=== PATIENT | male | born 1950 | race Caucasian/White ===

== ENCOUNTER 2020-07-19 13:49 | Outpatient (REF) | payer MEDICARE, SELFPAY | END 2020-07-19 13:50 | disposition home or self-care (01) | LOC: HO.LNP 13:49 | PROVIDERS: Visit Provider Internal Medicine | DX: Z20.828 Contact with and (suspected) exposure to other viral communicable diseases (principal) | CPT/HCPCS: U0003 ==

== ENCOUNTER 2020-07-21 10:15 | Outpatient (REF) | payer MEDICARE, BC, OTHER, SELFPAY ==
[2020-07-21 13:42] LABS: MANUAL DIFF FLAG NO
[2020-07-21 13:49] LABS: Basophils Absolute Auto 0.1 X10*3/uL (0.0-0.2); Basophils Percent Auto 0.5 % (0-2); Eosinophils Absolute Auto 0.8 X10*3/uL (0.0-0.4); Eosinophils Percent Auto 5.3 % (0-4); Hemoglobin 15.2 g/dl (14.0-18.0); Imm Gran Abs Auto 0.08 X10*3/uL (0.00-0.03); Imm Gran Pct Auto 0.5 % (0.0-0.4); Lymphocytes Absolute Auto 3.2 X10*3/uL (1.2-4.9); Lymphocytes Percent Auto 20.9 % (20-40); Mean Corpuscular HGB Conc 32.3 g/dl (31.0-36.0); Mean Corpuscular Hemoglobin 28.6 pg (27.0-33.0); Mean Corpuscular Volume 88.5 fL (80-98); Monocytes Absolute Auto 1.2 X10*3/uL (0.1-1.2); Monocytes Percent Auto 7.6 % (2-11); Neutrophils Absolute Auto 10.1 X10*3/uL (2.0-8.3); Neutrophils Percent Auto 65.2 % (45-73); Platelet Count 320 X10*3/uL (160-400); Red Blood Count 5.31 X10*6/uL (4.60-5.80); Red Cell Distribution Width 13.2 % (11.0-16.0); White Blood Count 15.5 X10*3/uL (4.8-10.8)
[2020-07-21 14:19] LABS: Alanine Aminotransferase 27 U/L (0-40); Albumin Level 4.3 g/dL (3.5-5.0); Alkaline Phosphatase 98 U/L (39-117); Anion Gap 13 (12-20); Aspartate Amino Transferase 18 U/L (5-37); Bilirubin Total 0.8 mg/dL (0.0-1.0); Blood Urea Nitrogen 15 mg/dL (9-16); Calcium 9.5 mg/dL (8.4-10.2); Carbon Dioxide 27 mmol/L (22-29); Chloride 102 mmol/L (96-108); Estimated Glomerular Filt Rate > 60; Glucose Random 243 mg/dL (60-115); Potassium 4.5 mmol/l (3.3-5.1); Sodium 137 mmol/L (135-145); Total Protein 6.6 g/dL (6.5-8.0)
[2020-07-21 14:22] LABS: Estimated Average Glucose 203 mg/dL; Hemoglobin A1c % 8.7 %
[2020-07-21 14:39] LABS: Prostate Specific Antigen Scr 0.74 ng/mL (<0.05-4.0)
== END 2020-07-21 10:16 | disposition home or self-care (01) ==
LOC: HO.10HDL 10:15
PROVIDERS: PCP Internal Medicine; Visit Provider Internal Medicine
DX: E78.00 Pure hypercholesterolemia, unspecified (principal); I25.10 Atherosclerotic heart disease of native coronary artery without angina pectoris; E11.9 Type 2 diabetes mellitus without complications; I10 Essential (primary) hypertension; R35.1 Nocturia
CPT/HCPCS: 36415; 80053; 83036; 84153; 85025

== ENCOUNTER 2020-11-16 11:39 | Outpatient (REF) | payer MEDICARE, BC, OTHER, SELFPAY ==
[2020-11-16 14:15] LABS: Glucose Urine UA >=1000 MG/DL (NEG); Leukocyte Esterase Urine NEG (NEG); Nitrite Urine NEG (NEG); Specific Gravity - Urine >= 1.030 (1.005-1.025); Urine Blood NEG (NEG); Urine Ketones NEG (NEG); Urine Protein NEG (NEG-TRACE)
[2020-11-16 14:16] LABS: Appearance Urine CLEAR; Color Urine YELLOW
[2020-11-16 14:35] LABS: RBC Urine 0 /HPF (0); Squamous Epithelial Cell Urine TRACE /LPF; WBC Urine 0 /HPF (0-4)
[2020-11-16 14:37] LABS: Anion Gap 16 (12-20); Blood Urea Nitrogen 16 mg/dL (9-16); Calcium 9.2 mg/dL (8.4-10.2); Carbon Dioxide 23 mmol/L (22-29); Chloride 100 mmol/L (96-108); Estimated Glomerular Filt Rate > 60; Glucose Random 280 mg/dL (60-115); Potassium 4.2 mmol/L (3.3-5.1); Sodium 135 mmol/L (135-145)
[2020-11-16 15:02] LABS: Prostate Specific Antigen 0.94 ng/mL (<0.05-4.0)
== END 2020-11-16 11:40 | disposition home or self-care (01) ==
LOC: HO.10HDL 11:39
PROVIDERS: Visit Provider Internal Medicine
DX: Z12.5 Encounter for screening for malignant neoplasm of prostate (principal); R35.1 Nocturia; R35.8 Other polyuria
CPT/HCPCS: 36415; 80048; 81001; 84153; 87086

== ENCOUNTER 2021-03-01 09:02 | Outpatient (REF) | payer MEDICARE, BC, OTHER, SELFPAY ==
[2021-03-01 10:27] LABS: MANUAL DIFF FLAG NO
[2021-03-01 10:42] LABS: Basophils Absolute Auto 0.1 X10*3/uL (0.0-0.2); Basophils Percent Auto 0.6 % (0-2); Eosinophils Absolute Auto 1.1 X10*3/uL (0.0-0.4); Eosinophils Percent Auto 7.4 % (0-4); Hemoglobin 14.4 g/dl (14.0-18.0); Imm Gran Abs Auto 0.05 X10*3/uL (0.00-0.03); Imm Gran Pct Auto 0.4 % (0.0-0.4); Lymphocytes Absolute Auto 3.2 X10*3/uL (1.2-4.9); Lymphocytes Percent Auto 22.5 % (20-40); Mean Corpuscular Hemoglobin 28.7 pg (27.0-33.0); Mean Corpuscular Volume 89.8 fL (80-98); Mean Platelet Volume 10.6 fL (9.4-12.4); Monocytes Absolute Auto 0.8 X10*3/uL (0.1-1.2); Monocytes Percent Auto 5.9 % (2-11); Neutrophils Percent Auto 63.2 % (45-73); Platelet Count 315 X10*3/uL (160-400); Red Blood Count 5.01 X10*6/uL (4.60-5.80); Red Cell Distribution Width 12.6 % (11.0-16.0); White Blood Count 14.2 X10*3/uL (4.8-10.8)
[2021-03-01 10:46] LABS: Estimated Average Glucose 235 mg/dL; Hemoglobin A1c % 9.8 %
[2021-03-01 10:59] LABS: Creatinine Urine 104.91 mg/dL; Microalbum/Creatinine Ratio Ur 8.5 ug/mg cr
[2021-03-01 11:13] LABS: Alanine Aminotransferase 24 U/L (0-40); Albumin Level 4.2 g/dL (3.5-5.0); Alkaline Phosphatase 109 U/L (39-117); Anion Gap 14 (12-20); Aspartate Amino Transferase 15 U/L (5-37); Bilirubin Total 0.6 mg/dL (0.0-1.0); Blood Urea Nitrogen 13 mg/dL (9-16); Calcium 10.1 mg/dL (8.4-10.2); Carbon Dioxide 25 mmol/L (22-29); Chloride 104 mmol/L (96-108); Estimated Glomerular Filt Rate > 60; Glucose Random 266 mg/dL (60-115); Potassium 4.9 mmol/L (3.3-5.1); Sodium 138 mmol/L (135-145); Total Protein 6.3 g/dL (6.5-8.0)
== END 2021-03-01 09:03 | disposition home or self-care (01) ==
LOC: HO.10HDL 09:02
PROVIDERS: PCP Internal Medicine; Visit Provider Internal Medicine
DX: Z13.89 Encounter for screening for other disorder (principal)
CPT/HCPCS: 36415; 80053; 82043; 83036; 85025

== ENCOUNTER 2021-06-27 08:52 | Outpatient (REF) | payer MEDICARE, BC, OTHER, SELFPAY ==
[2021-06-27 10:14] LABS: MANUAL DIFF FLAG NO
[2021-06-27 10:27] LABS: Basophils Absolute Auto 0.1 X10*3/uL (0.0-0.2); Basophils Percent Auto 0.5 % (0-2); Eosinophils Absolute Auto 0.8 X10*3/uL (0.0-0.4); Eosinophils Percent Auto 5.6 % (0-4); Hemoglobin 14.7 g/dl (14.0-18.0); Imm Gran Abs Auto 0.06 X10*3/uL (0.00-0.03); Imm Gran Pct Auto 0.4 % (0.0-0.4); Lymphocytes Absolute Auto 2.8 X10*3/uL (1.2-4.9); Lymphocytes Percent Auto 19.5 % (20-40); Mean Corpuscular HGB Conc 32.7 g/dl (31.0-36.0); Mean Corpuscular Hemoglobin 29.5 pg (27.0-33.0); Mean Corpuscular Volume 90.4 fL (80.0-98.0); Mean Platelet Volume 10.6 fL (9.4-12.4); Monocytes Absolute Auto 0.9 X10*3/uL (0.1-1.2); Neutrophils Absolute Auto 9.7 x10*3/uL (2.0-8.3); Platelet Count 286 X10*3/uL (160-400); Red Blood Count 4.98 X10*6/uL (4.60-5.80); White Blood Count 14.3 X10*3/uL (4.8-10.8)
[2021-06-27 10:52] LABS: Alanine Aminotransferase 25 U/L (0-40); Albumin Level 4.2 g/dL (3.5-5.0); Alkaline Phosphatase 120 U/L (39-117); Anion Gap 17 (12-20); Aspartate Amino Transferase 15 U/L (5-37); Bilirubin Total 0.5 mg/dL (0.0-1.0); Blood Urea Nitrogen 16 mg/dL (9-16); Calcium 9.7 mg/dL (8.4-10.2); Carbon Dioxide 24 mmol/L (22-29); Chloride 103 mmol/L (96-108); Cholesterol 105 mg/dL; Estimated Glomerular Filt Rate > 60; Glucose Fasting 296 mg/dL (60-99); HDL Cholesterol 28 mg/dL; LDL Cholesterol Calculated 45 mg/dl; Potassium 4.8 mmol/L (3.3-5.1); Sodium 139 mmol/L (135-145); Total Protein 6.3 g/dL (6.5-8.0); Triglycerides 162 mg/dL
[2021-06-27 10:53] LABS: Estimated Average Glucose 229 mg/dL; Hemoglobin A1c % 9.6 %
[2021-06-27 11:15] LABS: Prostate Specific Antigen Scr 0.73 ng/mL (<0.05-4.0)
== END 2021-06-27 08:53 | disposition home or self-care (01) ==
LOC: HO.10HDL 08:52
PROVIDERS: Visit Provider Internal Medicine
DX: I25.10 Atherosclerotic heart disease of native coronary artery without angina pectoris (principal); J44.9 Chronic obstructive pulmonary disease, unspecified; E11.9 Type 2 diabetes mellitus without complications; E78.00 Pure hypercholesterolemia, unspecified; G35 Multiple sclerosis; N40.0 Benign prostatic hyperplasia without lower urinary tract symptoms; Z12.5 Encounter for screening for malignant neoplasm of prostate
CPT/HCPCS: 36415; 80053; 80061; 83036; 84153; 85025

== ENCOUNTER 2021-07-03 09:18 | Outpatient (REF) | payer MEDICARE, BC, OTHER, SELFPAY ==
[2021-07-03 11:15] LABS: Creatinine Urine 91.66 mg/dL; Microalbum/Creatinine Ratio Ur 6.5 ug/mg cr
== END 2021-07-03 09:19 | disposition home or self-care (01) ==
LOC: HO.10HDL 09:18
PROVIDERS: Visit Provider Internal Medicine
DX: E11.9 Type 2 diabetes mellitus without complications (principal); I25.10 Atherosclerotic heart disease of native coronary artery without angina pectoris; J44.9 Chronic obstructive pulmonary disease, unspecified; E78.00 Pure hypercholesterolemia, unspecified; G35 Multiple sclerosis; N40.0 Benign prostatic hyperplasia without lower urinary tract symptoms
CPT/HCPCS: 82043

== ENCOUNTER 2021-08-01 11:34 | Outpatient (REF) | payer MEDICARE, BC, OTHER, SELFPAY ==
[2021-08-01 12:28] LABS: Influenza A PCR NEGATIVE (Negative); Influenza B PCR NEGATIVE (Negative); Resp Syncy Virus RNA Qual PCR NEGATIVE (Negative); SARS COV2 PCR INHOUSE NEGATIVE (Negative)
== END 2021-08-01 11:35 | disposition home or self-care (01) ==
LOC: HO.LNP 11:34
PROVIDERS: Visit Provider Internal Medicine
DX: Z20.822 Contact with and (suspected) exposure to COVID-19 (principal)
CPT/HCPCS: 0241U

== ENCOUNTER 2021-09-27 09:00 | Outpatient (REF) | payer MEDICARE, OTHER, SELFPAY ==
[2021-09-27 11:02] LABS: MANUAL DIFF FLAG NO
[2021-09-27 11:08] LABS: Basophils Absolute Auto 0.1 X10*3/uL (0.0-0.2); Basophils Percent Auto 0.5 % (0-2); Eosinophils Absolute Auto 0.8 X10*3/uL (0.0-0.4); Eosinophils Percent Auto 5.6 % (0-4); Hematocrit 45.9 % (42.0-52.0); Imm Gran Abs Auto 0.05 X10*3/uL (0.00-0.03); Imm Gran Pct Auto 0.3 % (0.0-0.4); Lymphocytes Percent Auto 20.3 % (20-40); Mean Corpuscular HGB Conc 32.7 g/dl (31.0-36.0); Mean Corpuscular Hemoglobin 28.9 pg (27.0-33.0); Mean Corpuscular Volume 88.4 fL (80.0-98.0); Mean Platelet Volume 10.5 fL (9.4-12.4); Monocytes Percent Auto 6.7 % (2-11); Neutrophils Absolute Auto 9.8 x10*3/uL (2.0-8.3); Neutrophils Percent Auto 66.6 % (45-73); Platelet Count 289 X10*3/uL (160-400); Red Blood Count 5.19 X10*6/uL (4.60-5.80); White Blood Count 14.7 X10*3/uL (4.8-10.8)
[2021-09-27 11:21] LABS: Estimated Average Glucose 200 mg/dL; Hemoglobin A1c % 8.6 %
[2021-09-27 11:33] LABS: Alanine Aminotransferase 26 U/L (0-40); Albumin Level 4.1 g/dL (3.5-5.0); Alkaline Phosphatase 124 U/L (39-117); Anion Gap 12 (12-20); Aspartate Amino Transferase 18 U/L (5-37); Bilirubin Total 0.5 mg/dL (0.0-1.0); Blood Urea Nitrogen 14 mg/dL (9-16); Carbon Dioxide 27 mmol/L (22-29); Chloride 102 mmol/L (96-108); Estimated Glomerular Filt Rate > 60; Glucose Random 265 mg/dL (60-115); Potassium 4.4 mmol/L (3.3-5.1); Sodium 137 mmol/L (135-145); Total Protein 6.4 g/dL (6.5-8.0)
[2021-09-27 14:20] LABS: Creatinine Urine 109.35 mg/dL; Microalbum/Creatinine Ratio Ur 5.4 ug/mg cr
== END 2021-09-27 09:01 | disposition home or self-care (01) ==
LOC: HO.10HDL 09:00
PROVIDERS: Visit Provider Internal Medicine
DX: E11.9 Type 2 diabetes mellitus without complications (principal); I25.10 Atherosclerotic heart disease of native coronary artery without angina pectoris; J44.9 Chronic obstructive pulmonary disease, unspecified
CPT/HCPCS: 36415; 80053; 82043; 83036; 85025

== ENCOUNTER 2021-12-26 10:40 | Outpatient (REF) | payer MEDICARE, OTHER, SELFPAY ==
[2021-12-26 13:45] LABS: Anion Gap 16 (12-20); Blood Urea Nitrogen 14 mg/dL (9-16); Calcium 10.3 mg/dL (8.4-10.2); Carbon Dioxide 26 mmol/L (22-29); Chloride 103 mmol/L (96-108); Estimated Glomerular Filt Rate > 60; Glucose Random 219 mg/dL (60-115); Potassium 4.8 mmol/L (3.3-5.1); Sodium 140 mmol/L (135-145)
[2021-12-26 14:04] LABS: Estimated Average Glucose 174 mg/dL; Hemoglobin A1c % 7.7 %
== END 2021-12-26 10:41 | disposition home or self-care (01) ==
LOC: HO.10HDL 10:40
PROVIDERS: Visit Provider Internal Medicine
DX: E11.9 Type 2 diabetes mellitus without complications (principal); I25.10 Atherosclerotic heart disease of native coronary artery without angina pectoris
CPT/HCPCS: 36415; 80048; 83036

== ENCOUNTER 2022-03-13 10:44 | Outpatient (REF) | payer MEDICARE, OTHER, SELFPAY ==
--- NOTE | ~2022-03-13 | XR_ITS ---
EXAMINATION: XR LUMBOSACRAL SPINE WITH OBLIQUES CLINICAL INFORMATION: Lumbar disc herniation COMPARISON: None TECHNIQUE: AP, both oblique, and lateral views of the lumbar spine. Lateral view of the lumbosacral junction. FINDINGS: I suspect an anomaly at the lumbosacral junction. I suspect 5 lumbar type vertebrae but numbering is slightly uncertain. The lowest disc will be considered L5/S1. There appears to be bilateral L5 spondylolysis without significant spondylolisthesis. There is mild to moderate narrowing of the L4/L5 disc. No significant loss of volume. 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 The pedicles appear intact. No suspicious paraspinal abnormality. There is arterial calcification. XR/XR lumbar spine 4V min IMPRESSION: Bilateral L5 spondylolysis without spondylolisthesis. There is some relatively mild degenerative change with disc narrowing greatest at L4/L5.
== END 2022-03-13 10:45 | disposition home or self-care (01) ==
LOC: HO.XRAY 10:44
PROVIDERS: PCP Internal Medicine; Visit Provider Psychiatry & Neurology Neurology
DX: M51.26 Other intervertebral disc displacement, lumbar region (principal)
CPT/HCPCS: 72110

== ENCOUNTER 2022-07-11 08:31 | Outpatient (REF) | payer MEDICARE, OTHER, SELFPAY ==
[2022-07-11 10:38] LABS: MANUAL DIFF FLAG NO
[2022-07-11 10:54] LABS: Basophils Absolute Auto 0.1 X10*3/uL (0.0-0.2); Basophils Percent Auto 0.5 % (0-2); Eosinophils Absolute Auto 0.9 X10*3/uL (0.0-0.4); Eosinophils Percent Auto 6.3 % (0-4); Hematocrit 45.8 % (42.0-52.0); Hemoglobin 14.7 g/dl (14.0-18.0); Imm Gran Abs Auto 0.06 X10*3/uL (0.00-0.03); Imm Gran Pct Auto 0.4 % (0.0-0.4); Lymphocytes Absolute Auto 2.8 X10*3/uL (1.2-4.9); Lymphocytes Percent Auto 19.3 % (20-40); Mean Corpuscular HGB Conc 32.1 g/dl (31.0-36.0); Mean Corpuscular Hemoglobin 28.9 pg (27.0-33.0); Mean Platelet Volume 10.9 fL (9.4-12.4); Monocytes Absolute Auto 0.9 X10*3/uL (0.1-1.2); Neutrophils Absolute Auto 9.8 x10*3/uL (2.0-8.3); Neutrophils Percent Auto 67.5 % (45-73); Platelet Count 308 X10*3/uL (160-400); Red Blood Count 5.09 X10*6/uL (4.60-5.80); White Blood Count 14.6 X10*3/uL (4.8-10.8)
[2022-07-11 10:55] LABS: Alanine Aminotransferase 29 U/L (0-40)
[2022-07-11 11:44] LABS: Creatinine Urine 115.17 mg/dL; Microalbum/Creatinine Ratio Ur 9.5 ug/mg cr
[2022-07-11 12:19] LABS: Alanine Aminotransferase 29 U/L (0-40); Albumin Level 4.5 g/dL (3.5-5.0); Alkaline Phosphatase 127 U/L (39-117); Anion Gap 13 (12-20); Aspartate Amino Transferase 18 U/L (5-37); Bilirubin Total 0.5 mg/dL (0.0-1.0); Blood Urea Nitrogen 16 mg/dL (9-16); Calcium 10.2 mg/dL (8.4-10.2); Carbon Dioxide 27 mmol/L (22-29); Chloride 106 mmol/L (96-108); Cholesterol 106 mg/dL; Estimated Glomerular Filt Rate > 60; Glucose Fasting 237 mg/dL (60-99); HDL Cholesterol 33 mg/dL; LDL Cholesterol Calculated 43 mg/dl; Potassium 5.1 mmol/L (3.3-5.1); Prostate Specific Antigen 0.85 ng/mL (<0.05-4.0); Sodium 141 mmol/L (135-145); Total Protein 6.7 g/dL (6.5-8.0); Triglycerides 150 mg/dL
[2022-07-11 12:34] LABS: Estimated Average Glucose 174 mg/dL; Hemoglobin A1c % 7.7 %
== END 2022-07-11 08:32 | disposition home or self-care (01) ==
LOC: HO.10HDL 08:31
PROVIDERS: Internal Medicine Interventional Cardiology; Visit Provider Internal Medicine
DX: Z12.5 Encounter for screening for malignant neoplasm of prostate (principal); I25.10 Atherosclerotic heart disease of native coronary artery without angina pectoris; N40.0 Benign prostatic hyperplasia without lower urinary tract symptoms; E11.9 Type 2 diabetes mellitus without complications; J44.9 Chronic obstructive pulmonary disease, unspecified; E78.00 Pure hypercholesterolemia, unspecified
CPT/HCPCS: 36415; 80053; 80061; 82043; 83036; 84153; 84460; 85025

== ENCOUNTER 2023-01-01 14:00 | Outpatient (RCR) | payer MEDICARE, OTHER, SELFPAY ==
--- NOTE | 2022-11-25 15:34 | MHC.PT.EP ---
[facility] [place] Office [place] Office [place] Office [address] Rozina Azar [address] [phone] F: [phone] F: [phone] F: [phone] F: [phone] Physical Therapy Plan of Care Date of Evaluation: Date of Surgery: N/A Diagnosis: Muscle weakness (generalized) Assessment: Pt is a pleasant 72yo M with PMH including MS who presents to PT with generalized weakness. He presents to PT with current impairments in decreased LE strength, decreased core stabilization, decreased balance, and impaired gait. He is limited functionally by prolonged standing, prolonged walking, and stair navigation. He is a good candidate for skilled PT in order to address current impairments to facilitate return to PLOF. He is recommended to be seen 2x/week for 4 weeks and will be reassessed at that time. Frequency and Duration: The patient will be seen 2x/week for 4 weeks Short Term Goals: Pt will be I with HEP to promote self management of symptoms Pt will improve L quad strength to at least 4/5 Mcc Goals: Pt will tolerate static standing > 3 min without rest break to assist with ADLs such as brushing teeth Pt will demonstrate improvements in function as evidenced by statistically significant improvement in LEFI outcome measure Treatment Plan: Modalities to reduce pain, spasms and effusion. Manual therapy to restore motion and function. Therapeutic exercise to improve strength and flexibility. Neuromuscular re-education for posture and balance. Therapeutic activities to return to functional activities of daily living. Electronically signed by: Latonia Guallpa, PT, DPT Please sign and return to therapist. Thank you for your referral.
--- NOTE | 2023-01-02 16:47 | MHC.PT.DC ---
[facility] [place] Office [place] Office [place] Office [address] Rozina Azar [address] [phone] F: [phone] F: [phone] F: [phone] F: [phone] Physical Therapy Discharge Report Diagnosis: Muscle weakness (generalized) Date of Surgery: N/A Date of Evaluation: 11/25/22 Date of Discharge: 01/02/23 Treatments to Date: 7 Cancellations to Date: No Shows to Date: Discharge Status: Improved Function Discharge Summary: Pt was seen for PT from 11/25/22-01/01/23. He has made good progress since SOC and has made progress toward his STGs and LTGs. He improved his score on LEFI outcome measure from 17/80 on initial PT evaluation to 65/80 on 01/01/23. At last attended session he reports he has not been compliant with HEP. He does have HEP for UE, LE and core strengthening. Pt is being D/C from skilled PT at this time. Pt had no questions for physical therapy at time of D/C. Electronically signed by: Latonia Guallpa, PT, DPT Please sign and return to therapist. Thank you for your referral.
== END 2023-01-02 16:47 | disposition home or self-care (01) ==
LOC: HO.PT 14:00
PROVIDERS: PCP Internal Medicine; Visit Provider Internal Medicine
DX: M62.81 Muscle weakness (generalized) (principal)
CPT/HCPCS: 97110; 97112; 97162; 97530

== ENCOUNTER 2023-05-26 08:23 | Outpatient (REF) | payer MEDICARE, OTHER, SELFPAY ==
[2023-05-26 10:51] LABS: MANUAL DIFF FLAG NO
[2023-05-26 10:55] LABS: Basophils Absolute Auto 0.1 X10*3/uL (0.0-0.2); Basophils Percent Auto 0.6 % (0-2); Eosinophils Absolute Auto 0.5 X10*3/uL (0.0-0.4); Eosinophils Percent Auto 3.8 % (0-4); Hematocrit 44.4 % (42.0-52.0); Hemoglobin 14.8 g/dl (14.0-18.0); Imm Gran Abs Auto 0.06 X10*3/uL (0.00-0.03); Imm Gran Pct Auto 0.4 % (0.0-0.4); Lymphocytes Absolute Auto 2.5 X10*3/uL (1.2-4.9); Lymphocytes Percent Auto 17.3 % (20-40); Mean Corpuscular HGB Conc 33.3 g/dl (31.0-36.0); Mean Corpuscular Hemoglobin 29.4 pg (27.0-33.0); Mean Corpuscular Volume 88.1 fL (80.0-98.0); Mean Platelet Volume 10.8 fL (9.4-12.4); Monocytes Absolute Auto 0.9 X10*3/uL (0.1-1.2); Monocytes Percent Auto 5.9 % (2-11); Neutrophils Absolute Auto 10.3 x10*3/uL (2.0-8.3); Platelet Count 272 X10*3/uL (160-400); Red Blood Count 5.04 X10*6/uL (4.60-5.80); Red Cell Distribution Width 12.6 % (11.0-16.0); White Blood Count 14.3 X10*3/uL (4.8-10.8)
[2023-05-26 11:17] LABS: Estimated Average Glucose 186 mg/dL; Hemoglobin A1c % 8.1 % (<6.0)
[2023-05-26 11:44] LABS: Alanine Aminotransferase 25 U/L (0-40); Albumin Level 4.1 g/dL (3.5-5.0); Alkaline Phosphatase 111 U/L (39-117); Anion Gap 14 (12-20); Aspartate Amino Transferase 20 U/L (5-37); Bilirubin Total 0.5 mg/dL (0.0-1.0); Blood Urea Nitrogen 14 mg/dL (9-16); Carbon Dioxide 26 mmol/L (22-29); Chloride 103 mmol/L (96-108); Estimated Glomerular Filt Rate > 60; Glucose Random 334 mg/dL (60-115); Potassium 4.6 mmol/L (3.3-5.1); Sodium 138 mmol/L (135-145); Total Protein 6.6 g/dL (6.5-8.0)
[2023-05-26 13:15] LABS: Appearance Urine Clear; Color Urine Yellow; Glucose Urine UA >=1000 mg/dL (Negative); Leukocyte Esterase Urine Negative (Negative); Nitrite Urine Negative (Negative); PH 5.5 (5.0-9.0); Specific Gravity - Urine >= 1.030 (1.005-1.025); UMIC TRIGGER UA YES; Urine Blood Trace (Negative); Urine Ketones Negative (Negative); Urine Protein Negative (Neg-Trace)
[2023-05-26 13:18] LABS: Bacteria Urine None Seen (None Seen); Hyaline Casts Urine 0-2 /LPF (0-2); Squamous Epithelial Cell Urine 0-2 /HPF (0-2); WBC Urine 0-5 /HPF (0-5)
[2023-05-26 13:32] LABS: Microalbum/Creatinine Ratio Ur 10.8 ug/mg cr (<30)
== END 2023-05-26 08:24 | disposition home or self-care (01) ==
LOC: HO.10HDL 08:23
PROVIDERS: Visit Provider Internal Medicine
DX: I25.10 Atherosclerotic heart disease of native coronary artery without angina pectoris (principal); E11.9 Type 2 diabetes mellitus without complications; J44.9 Chronic obstructive pulmonary disease, unspecified
CPT/HCPCS: 36415; 80053; 81001; 82043; 82570; 83036; 85025

== ENCOUNTER 2023-10-28 08:17 | Outpatient (REF) | payer MEDICARE, OTHER, SELFPAY ==
[2023-10-28 10:53] LABS: MANUAL DIFF FLAG NO
[2023-10-28 10:58] LABS: Basophils Absolute Auto 0.1 X10*3/uL (0.0-0.2); Basophils Percent Auto 0.5 % (0-2); Eosinophils Absolute Auto 0.6 X10*3/uL (0.0-0.4); Eosinophils Percent Auto 4.1 % (0-4); Hemoglobin 15.4 g/dl (14.0-18.0); Imm Gran Abs Auto 0.04 X10*3/uL (0.00-0.03); Imm Gran Pct Auto 0.3 % (0.0-0.4); Lymphocytes Absolute Auto 2.4 X10*3/uL (1.2-4.9); Lymphocytes Percent Auto 15.8 % (20-40); Mean Corpuscular HGB Conc 33.5 g/dl (31.0-36.0); Mean Corpuscular Hemoglobin 29.4 pg (27.0-33.0); Mean Corpuscular Volume 87.8 fL (80.0-98.0); Mean Platelet Volume 10.5 fL (9.4-12.4); Monocytes Absolute Auto 0.9 X10*3/uL (0.1-1.2); Neutrophils Absolute Auto 11.2 x10*3/uL (2.0-8.3); Neutrophils Percent Auto 73.3 % (45-73); Platelet Count 274 X10*3/uL (160-400); Red Blood Count 5.24 X10*6/uL (4.60-5.80); Red Cell Distribution Width 12.5 % (11.0-16.0); White Blood Count 15.3 X10*3/uL (4.8-10.8)
[2023-10-28 11:06] LABS: Estimated Average Glucose 203 mg/dL; Hemoglobin A1c % 8.7 % (<6.0)
[2023-10-28 11:10] LABS: Alanine Aminotransferase 27 U/L (0-40); Alkaline Phosphatase 113 U/L (39-117); Anion Gap 12 (12-20); Aspartate Amino Transferase 17 U/L (5-37); Bilirubin Total 0.8 mg/dL (0.0-1.0); Blood Urea Nitrogen 11 mg/dL (9-16); Calcium 9.5 mg/dL (8.4-10.2); Carbon Dioxide 28 mmol/L (22-29); Chloride 99 mmol/L (96-108); Cholesterol 92 mg/dL (<200); Estimated Glomerular Filt Rate > 60; Glucose Fasting 450 mg/dL (60-99); HDL Cholesterol 29 mg/dL (>40); LDL Cholesterol Calculated 29 mg/dL (<100); Potassium 4.3 mmol/L (3.3-5.1); Sodium 135 mmol/L (135-145); Total Protein 6.6 g/dL (6.5-8.0); Triglycerides 173 mg/dL (<150)
[2023-10-28 11:31] LABS: Prostate Specific Antigen Scr 2.49 ng/mL (<0.05-4.0)
== END 2023-10-28 08:18 | disposition home or self-care (01) ==
LOC: HO.10HDL 08:17
PROVIDERS: Visit Provider Internal Medicine
DX: Z12.5 Encounter for screening for malignant neoplasm of prostate (principal); I25.10 Atherosclerotic heart disease of native coronary artery without angina pectoris; J44.9 Chronic obstructive pulmonary disease, unspecified; E78.00 Pure hypercholesterolemia, unspecified; N40.0 Benign prostatic hyperplasia without lower urinary tract symptoms; E11.9 Type 2 diabetes mellitus without complications
CPT/HCPCS: 36415; 80053; 80061; 83036; 84153; 85025

== ENCOUNTER 2024-07-13 08:28 | Outpatient (REF) | payer MEDICARE, OTHER, SELFPAY ==
[2024-07-13 11:11] LABS: Anion Gap 14 (12-20); Blood Urea Nitrogen 12 mg/dL (9-16); Calcium 9.5 mg/dL (8.4-10.2); Carbon Dioxide 28 mmol/L (22-29); Chloride 100 mmol/L (96-108); Estimated Glomerular Filt Rate > 60; Glucose Random 339 mg/dL (60-115); Potassium 4.4 mmol/L (3.3-5.1); Sodium 138 mmol/L (135-145)
[2024-07-13 11:12] LABS: Estimated Average Glucose 223 mg/dL; Hemoglobin A1C 294.1793 umol/L; Hemoglobin A1c % 9.4 % (<6.0)
--- OUTSIDE RECORDS SUMMARY | 2024-07-14 18:55 | XMS_ITS ---
Author Organization [facility] Address [address] [place] [address] Care Team Providers Care Scouring Train Operator Name Role Phone Karan Sawant MD Primary Care Provider Zafar Garcia [phone] REASON FOR VISIT Patient presents today for a recall colonoscopy Encounters Encounter Location Date Provider Diagnosis [facility] [address] [place] [address] 04/07/2024 Zafar Calderon PLAN OF TREATMENT Next Appt Details Provider Name:Zafar Calderon , 08/11/2024 02:20:00 PM, [address], [address], [place], [address],
--- OUTSIDE RECORDS SUMMARY | 2024-07-14 18:55 | XMS_ITS | Patient Health Record ---
Author Organization [facility] Address [address] [place] [address] Care Team Providers Care Light Adjuster Name Role Phone Karan Sawant MD Primary Care Provider Zafar Garcia Unavailable [phone] REASON FOR REFERRAL No Information MEDICATIONS Medication SIG (Take, Route, Frequency, Duration) Notes Start Date End Date Status buPROPion HCl ER (SR) 150 MG 1 tablet in the morning Orally Once a day Active Avonex 30 MCG as directed Intramus cular ONCE A WEEK Active Atorvastatin Calcium 80 MG 1 tablet Oral ly Once a day for 30 day(s) Active Lisinopril 2.5 MG 1 tablet Orally Once a day for 30 day(s) Active metFORMIN HCl 500 MG 1 tablet with a brando l Orally Once a day for 30 day(s) Active Aspir-81 81 MG 1 tablet Orally Once a day for 30 day(s) Active glipiZIDE ER 2.5 MG 1 tablet with breakf ast Orally Once a day for 30 day(s) Active Metoprolol Succinate ER 25 MG 1 tablet Orally Once a day for 30 day(s) Active IMMUNIZATIONS Vaccine Route Administration Date Status Comme nts Influenza Unknown 10/23/2018 Refused SOCIAL HISTORY Tobacco Use: Social History Observation Description Date Details (start date - stop date) Current Smoker NA - NA Sex Assigned At : Social History Observation Description Sex Assigned At Unknown Tobacco Use/Smoking Question Answer Notes Patient is a current smoker How often do you smoke cigarettes? every day How many cigarettes a day do you smoke? 11-20 How soon after you wake up d o you smoke your first cigarette? 6-30 minutes Are you interested in quitting? Thinking about q uitting Alcohol Screen Question Answer Notes Did you have a drink containing alcohol in the p ast year? No Points 0 Interpretation Negative PROBLEMS Problem Type ICD Code Onset Dates Problem Status W/U Status Risk SNOMED Code Notes Problem Encounter for screening for malignant neoplasm of colon (Z12.11) Active confirmed 433315841 Problem Hx of adenomatous colonic polyps (Z86.010) Active confirmed 908062791 Problem Encounter for long-term (current) aspirin use (Z79.82) Active confirmed [id number] Encounters Encounter Location Date Provider Diagnosis [facility] [address] [place] [address] 04/07/2024 Zafar Calderon PLAN OF TREATMENT Future Test Test Name Order Date COLONOSCOPY 12/01/2012 COLONOSCOPY 10/23/2018 Next Appt Details Provider Name:Zafar Wu Yumiko , 08/11/2024 02:20:00 PM, [address], [address], [place], [address], Insurance Providers Payer Name Payer Address Payer Phone Subscriber Number Group Number Insured Name Patient Relationship to Insured Coverage Start Date Coverage End Date MEDICARE OF [place] [address] [facility] [place] [address] [phone] [id number] SUN HERNANDES Self - patient is the insured [employer] [address] [place] [address] [id number] SUN HERNANDES Self - patient is the insured MEDICAL (GENERAL) HISTORY Medical History History ICD Code Colonoscopy 08-31-2001-tubular adenoma re moved Neg. colonoscopy in 05/2007 except for h yperplastic poyps Multiple sclerosis since age 25 NIDDM Denies CVA,Lung disease,renal disease Hyperlipidemia [place] 2016- stent placed Colonoscopy 01/2013--- 2 small tubular ad enomas removed Surgical History Surgery Date(Month/Year) Vasetomy Tonsillectomy Hernia repair-inguinal
== END 2024-07-13 08:29 | disposition home or self-care (01) ==
LOC: HO.10HDL 08:28
PROVIDERS: Visit Provider Internal Medicine
DX: E11.9 Type 2 diabetes mellitus without complications (principal); J44.9 Chronic obstructive pulmonary disease, unspecified
CPT/HCPCS: 36415; 80048; 83036

== ENCOUNTER 2024-12-02 07:20 | Outpatient (REF) | payer MEDICARE, OTHER, SELFPAY ==
--- OUTSIDE RECORDS SUMMARY | 2024-12-02 07:22 | XMS_ITS | Continuity of Care Document ---
Author Name [facility] Organization [facility] Care Team Providers Care Neurology Epilepsy Physician Name Role Phone [facility] Unavailable Unavailable Medications Combined list of outpatient medications from Department of Defense and Veterans Affairs facilities.Medications provided include 1) outpatient medications from the last 15 months, and 2) patient-reported medications. Medication Details Route Status Patient Instructions Prescription Expires Prescription Number Last Dispense Date Ordering Provider Order Date Order Qty Source ATORVASTATI N CALCIUM (atorvastat in calcium), 80 MG, TABLET, ORAL, [facility], 500 ea. BOTTLE Active [id number] 4 2023 90 Pharmac y Data Transac tion Service Facilit y AVONEX (INTERFERON BETA-1A), 30MCG/.5ML, SYRINGEKIT, INTRAMUSC, BIOGEN-IDEC , 1 ea. KIT Cancele d [id number] : 2023 0 Pharmac y Data Transac tion Service Facilit y AVONEX (INTERFERON BETA-1A), 30MCG/.5ML, SYRINGEKIT, INTRAMUSC, BIOGEN-IDEC , 1 ea. KIT Cancele d [id number] : 2023 0 Pharmac y Data Transac tion Service Facilit y AVONEX (INTERFERON BETA-1A), 30MCG/.5ML, SYRINGEKIT, INTRAMUSC, BIOGEN-IDEC , 1 ea. KIT Cancele d [id number] : 2023 0 Pharmac y Data Transac tion Service Facilit y AVONEX (INTERFERON BETA-1A), 30MCG/.5ML, SYRINGEKIT, INTRAMUSC, BIOGEN-IDEC , 1 ea. KIT Active [id number] 01/05/20 2 4 2023 3 Pharmac y Data Transac tion Service Facilit y AVONEX (INTERFERON BETA-1A), 30MCG/.5ML, SYRINGEKIT, INTRAMUSC, BIOGEN-IDEC , 1 ea. KIT Active [id number] 10/20/19 2 4 2023 3 Pharmac y Data Transac tion Service Facilit y AVONEX (INTERFERON BETA-1A), 30MCG/.5ML, SYRINGEKIT, INTRAMUSC, BIOGEN-IDEC , 1 ea. KIT Cancele d [id number] : 2023 0 Pharmac y Data Transac tion Service Facilit y AVONEX (INTERFERON BETA-1A), 30MCG/.5ML, SYRINGEKIT, INTRAMUSC, BIOGEN-IDEC , 1 ea. KIT Cancele d [id number] : 2023 0 Pharmac y Data Transac tion Service Facilit y BUPROPION HCL SR (bupropion HCl), 150 MG, TAB SR 12H, ORAL, [employer], 100 ea. BOTTLE Active [id number] 4 2023 90 Pharmac y Data Transac tion Service Facilit y GABAPENTIN (GABAPENTIN ), 300 MG, CAPSULE, ORAL, ACTAVIS PHARMA,, 500 ea. BOTTLE Active [id number] 4 2023 90 Pharmac y Data Transac tion Service Facilit y GABAPENTIN (GABAPENTIN ), 300 MG, CAPSULE, ORAL, ACTAVIS PHARMA,, 500 ea. BOTTLE Active [id number] 4 2023 90 Pharmac y Data Transac tion Service Facilit y GABAPENTIN (GABAPENTIN ), 300 MG, CAPSULE, ORAL, ACTAVIS PHARMA,, 500 ea. BOTTLE Active [id number] 4 2023 90 Pharmac y Data Transac tion Service Facilit y GABAPENTIN (gabapentin ), 300 MG, CAPSULE, ORAL, [employer]ARMACE, 270 ea. BOTTLE Active [id number] 4 2023 270 Pharmac y Data Transac tion Service Facilit y GLIPIZIDE ER (glipizide) , 10 MG, TAB ER 24, ORAL, [employer], 100 ea. BOTTLE Active [id number] 4 2023 180 Pharmac y Data Transac tion Service Facilit y GLIPIZIDE ER (glipizide) , 10 MG, TAB ER 24, ORAL, AUROBINDO PHARM, 500 ea. BOTTLE Active [id number] 4 2023 180 Pharmac y Data Transac tion Service Facilit y LISINOPRIL (LISINOPRIL ), 2.5 MG, TABLET, ORAL, [employer], 500 ea. BOTTLE Active [id number] 4 2023 90 Pharmac y Data Transac tion Service Facilit y METFORMIN HCL ER (metformin HCl), 500 MG, TAB ER 24H, ORAL, [employer]ES PHARMA, 500 ea. BOTTLE Active [id number] 4 2023 180 Pharmac y Data Transac tion Service Facilit y METOPROLOL SUCCINATE (metoprolol succinate), 25 MG, TAB ER 24H, ORAL, ACTAVIS/TEV A, 100 ea. BOTTLE Active [id number] 4 2023 90 Pharmac y Data Transac tion Service Facilit y Immunizations Combined list of available immunizations from the Department of Defense and Veterans Affairs facilities. Immunization Series Date Given Administered By Site Reaction Lot Number CVX Code Drug Communication Electronic Technician Status Comments Source COVID-19, mRNA, LNP-S, PF, 30 mcg/0.3 mL dose, linda-sucrose 2021 [email or web address] [place] (PFR) Not Given COVID-19, mRNA, LNP-S, PF, 30 mcg/0.3 mL dose, linda-sucr ose DoD Social History Combined list of available smoking, tobacco, and other social history from Department of Defense and Veterans Affairs facilities. Social History Type Response Date Comment [facility] e This section is an empty social history section. DoD
[2024-12-02 10:03] LABS: Estimated Average Glucose 163 mg/dL; Hemoglobin A1C 190.1447 umol/L; Hemoglobin A1c % 7.3 % (<6.0); Total Hemoglobin (HGBA1C) 3348.6488 umol/L
[2024-12-02 10:21] LABS: Anion Gap 12 (12-20); Blood Urea Nitrogen 14 mg/dL (9-16); Calcium 8.9 mg/dL (8.4-10.2); Carbon Dioxide 26 mmol/L (22-29); Chloride 105 mmol/L (96-108); Estimated Glomerular Filt Rate > 60; Glucose Random 227 mg/dL (60-115); Potassium 3.9 mmol/L (3.3-5.1); Sodium 139 mmol/L (135-145)
== END 2024-12-02 07:21 | disposition home or self-care (01) ==
LOC: HO.10HDL 07:20
PROVIDERS: Visit Provider Internal Medicine
DX: E11.65 Type 2 diabetes mellitus with hyperglycemia (principal); I10 Essential (primary) hypertension; J44.9 Chronic obstructive pulmonary disease, unspecified; G35 Multiple sclerosis; E78.5 Hyperlipidemia, unspecified; R29.898 Other symptoms and signs involving the musculoskeletal system; I71.40 Abdominal aortic aneurysm, without rupture, unspecified; M51.369 Other intervertebral disc degeneration, lumbar region without mention of lumbar back pain or lower extremity pain
CPT/HCPCS: 36415; 80048; 83036; 99202

== ENCOUNTER 2024-12-02 10:55 | Outpatient (AMB) | payer MEDICARE, OTHER, SELFPAY ==
--- NOTE | 2024-12-02 11:17 | MHC.PC.OV ---
Vital Signs 12/02/24 11:24 Height 5 ft 10 in Weight 319 lb 10.724 oz BMI 45.9 BP 106/58 L Pulse 85 Pulse Source Pulse Oximeter Temp 97.6 F Temp Source Temporal Artery Scan Pulse Oximetry (%) 97 Oxygen Delivery Method Room Air Intake Visit Reasons: Routine Rn Neurology Required: No Accompanied by: Spouse Allergies hay fever Allergy (Mild, Uncoded 12/02/24 11:18) sob Fall risk assessment: 2 + Falls in past year Last assessed Fall Risk: 12/02/24 Dental Screening Dental Screen Date: 12/02/24 Did you have a dental visit in the last 12 months?: Yes Did you have a dental problem in the last 6 months where you did not have access to dental care?: No Was dental information given to patient?: Patient has dentist HPI HPI Comments History of Present Illness Details 74 year old male with past medical history of diabetes, AAA, DDD lumbar spine, MS presenting for follow up Diabetes: On glipizide.Last a1c 9.4 recently glucose has been controlled recently. due for a1c CV: Follows with Dr Snowden. aortic dilation. Had fall in October while in [place]. 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 Follows with neurology. Increased urination.Blood pressure sometimes soft. Feels weak sometimes. Needs PT having trouble getting around the home. Colon cancer screening: Colonoscopy was scheduled for tomorrow-rescheduled to March CONSTITUTIONAL: Denies weight loss, fever and chills. HEENT: Denies changes in vision and hearing. RESPIRATORY: Denies SOB and cough. CV: Denies palpitations and CP GI: Denies abdominal pain, nausea, vomiting and diarrhea. : Denies dysuria and urinary frequency. MSK: Denies new myalgia and joint pain. SKIN: Denies rash and pruritus. NEUROLOGICAL: Denies headache PSYCHIATRIC: Denies recent changes in mood. PHYSICAL EXAM: GENERAL: Alert and oriented x 3. NAD EYES: EOMI. Anicteric. HENT: Moist mucous membranes. No scleral icterus. No cervical lymphadenopathy. LUNGS: Clear to auscultation bilaterally. CARDIOVASCULAR: Regular rate and rhythm. No murmur. No JVD. ABDOMEN: Soft, non-tender +bs EXTREMITIES: No edema. Non-tender. SKIN: No rashes or lesions. Warm. NEUROLOGIC: No focal neurological deficits. CN II-XII grossly intact PSYCHIATRIC: Cooperative. Appropriate mood and affect [facility] Medical History (Updated 12/12/24 @ 19:31 by Carmen Quintana MD) Smoker Myocardial infarction (2016) HLD (hyperlipidemia) Diabetes Multiple sclerosis Surgical History (Updated 12/01/24 @ 16:29 by Niru Everett) Hx of inguinal hernia repair Hx of tonsillectomy Hx of vasectomy H/O heart artery stent Hx of colonoscopy (01/25/19) Social History (Updated 12/01/24 @ 09:44 by Sandra Carbone, JORI) Housing: House Patient Tobacco Use Status: Current everyday Tobacco user Tobacco use type: Cigarette Cigarettes Per Day: 20 service: No Current occupational status: retired Cognitive needs: Yes (M.S) Hearing needs: No Vision needs: Yes (Rx glasses) Questionnaire AUDIT C Alcohol Use Questionnaire (AUDIT-C) 1. How often do you have a drink containing alcohol?: Never 3. How often do you have six or more drinks on one occasion?: Never Total Score: 0 Physical exam (Primary Care) Vital Signs: Last Vital Signs Temp 97.6 F 12/02/24 11:24 Pulse 85 12/02/24 11:24 BP 106/58 L 12/02/24 11:24 Pulse Ox 97 12/02/24 11:24 Oxygen Delivery Method Room Air 12/02/24 11:24 BMI result Body Mass Index 45.9 Tobacco/Smoking Status: Tobacco use Status Patient Tobacco Use Status Current everyday Tobacco 12/02/24 11:25 Tobacco use type Cigarette 12/02/24 11:25 Coding Level of Care Code New Pt Level 4 (42658) Complex EM visit Add On G2211 Diagnoses Type 2 diabetes mellitus with hyperglycemia, without long-term current use of insulin E11.65 Diabetes mellitus type: type 2 Diabetes mellitus intermediate insulin use: without intermediate use Diabetes mellitus complication status: with hyperglycemia Multiple sclerosis G35 Hyperlipidemia, unspecified hyperlipidemia type E78.5 Hyperlipidemia type: unspecified Weakness of both lower extremities R29.898 Laterality: bilateral Assessment & Plan Assessment & Plan (1) Diabetes: Code(s): E11.9 - Type 2 diabetes mellitus without complications Category: Medical Qualifiers: Diabetes mellitus type: type 2 Diabetes mellitus intermediate insulin use: without adjunct faculty for medical terminology use Diabetes mellitus complication status: with hyperglycemia Qualified Code(s): E11.65 - Type 2 diabetes mellitus with hyperglycemia (2) Multiple sclerosis: Comment: since age 25 Code(s): G35 - Multiple sclerosis Category: Medical (3) HLD (hyperlipidemia): Code(s): E78.5 - Hyperlipidemia, unspecified Category: Medical Qualifiers: Hyperlipidemia type: unspecified Qualified Code(s): E78.5 - Hyperlipidemia, unspecified (4) Lower extremity weakness: Code(s): R29.898 - Other symptoms and signs involving the musculoskeletal system Category: Medical Qualifiers: Laterality: bilateral Qualified Code(s): R29.898 - Other symptoms and signs involving the musculoskeletal system Plan 74 y/o to establish care Past medical, surgical, social reviewed Diabetes-due for A1C MS-weakness. Needs pt. BPPV-vestibular therapy Labs ordered Orders: Orders PT Evaluation and Treatment 12/02/24 R26.89 - Other abnormalities of gait and mobility, H81.10 - Benign paroxysmal vertigo, unspecified ear PT Evaluation and Treatment 12/02/24 R26.89 - Other abnormalities of gait and mobility, G35 - Multiple sclerosis, R29.898 - Other symptoms and signs involving the musculoskeletal system Lipid Panel 3 Months E11.9 - Type 2 diabetes mellitus without complications, E78.5 - Hyperlipidemia, unspecified, I21.9 - Acute myocardial infarction, unspecified Prostate Specific Antigen 3 Months E11.9 - Type 2 diabetes mellitus without complications, E78.5 - Hyperlipidemia, unspecified, I21.9 - Acute myocardial infarction, unspecified Hemoglobin A1c 3 Months E11.9 - Type 2 diabetes mellitus without complications, E78.5 - Hyperlipidemia, unspecified, I21.9 - Acute myocardial infarction, unspecified Comprehensive Met. Panel 3 Months E11.9 - Type 2 diabetes mellitus without complications, E78.5 - Hyperlipidemia, unspecified, I21.9 - Acute myocardial infarction, unspecified Complete Blood Count Auto Diff 3 Months E11.9 - Type 2 diabetes mellitus without complications, E78.5 - Hyperlipidemia, unspecified, I21.9 - Acute myocardial infarction, unspecified Medications: New FreeStyle Lite Meter (blood-glucose meter) As directed 1 ea 0RF NS E11.9 - Type 2 diabetes mellitus without complications FreeStyle Lancets (lancets) once daily and as needed for hypoglycemia 100 ea 3RF NS E11.9 - Type 2 diabetes mellitus without complications FreeStyle Lite Strips (blood sugar diagnostic) once daily 100 ea 3RF NS E11.9 - Type 2 diabetes mellitus without complications
[2024-12-02 11:24] VITALS: BP 106/58; PULSE 85; TEMP 36.4; O2SAT 97; BMI 45.9
--- OUTSIDE RECORDS SUMMARY | 2024-12-02 12:36 | XMS_ITS | Continuity of Care Document ---
Author Name [facility] Organization [facility] Care Team Providers Care Extrusion Press Supervisor Name Role Phone [facility] Unavailable Unavailable Medications Combined list of outpatient [...] ORAL, 'S LAB, 500 ea. BOTTLE Active [id number] 4 2023 90 Pharmac y Data Transac tion Service Facilit y AVONEX (INTERFERON BETA-1A), 30MCG/.5ML, SYRINGEKIT, INTRAMUSC, BIOGEN-IDEC , 1 ea. KIT Cancele d [id number] : 2023 0 Pharmac y Data Transac tion Service Facilit y AVONEX (INTERFERON BETA-1A), 30MCG/.5ML, SYRINGEKIT, INTRAMUSC, BIOGEN-IDEC , 1 ea. KIT Cancele d [id number] : 2023 0 Pharmac y Data Transac tion Service Facilit y AVONEX (INTERFERON BETA-1A), 30MCG/.5ML, SYRINGEKIT, INTRAMUSC, BIOGEN-IDEC , 1 ea. KIT Cancele d [id number] : 2023 0 Pharmac y Data Transac tion Service Facilit y AVONEX (INTERFERON BETA-1A), 30MCG/.5ML, SYRINGEKIT, INTRAMUSC, BIOGEN-IDEC , 1 ea. KIT Active [id number] 01/05/20 2 4 2023 3 Pharmac y Data Transac tion Service Facilit y AVONEX (INTERFERON BETA-1A), 30MCG/.5ML, SYRINGEKIT, INTRAMUSC, BIOGEN-IDEC , 1 ea. KIT Active [id number] 10/20/19 2 4 2023 3 Pharmac y Data Transac tion Service Facilit y AVONEX (INTERFERON BETA-1A), 30MCG/.5ML, SYRINGEKIT, INTRAMUSC, BIOGEN-IDEC , 1 ea. KIT Cancele d [id number] : 2023 0 Pharmac y Data Transac tion Service Facilit y AVONEX (INTERFERON BETA-1A), 30MCG/.5ML, SYRINGEKIT, INTRAMUSC, BIOGEN-IDEC , 1 ea. KIT Cancele d [id number] : 2023 0 Pharmac y Data Transac tion Service Facilit y BUPROPION HCL SR (bupropion HCl), 150 MG, TAB SR 12H, ORAL, [employer], 100 ea. BOTTLE Active [id number] 4 2023 90 Pharmac y Data Transac tion Service Facilit y GABAPENTIN (GABAPENTIN ), 300 MG, CAPSULE, ORAL, ACTAVIS PHARMA,, 500 ea. BOTTLE Active [id number] 4 2023 90 Pharmac y Data Transac tion Service Facilit y GABAPENTIN (GABAPENTIN ), 300 MG, CAPSULE, ORAL, ACTAVIS PHARMA,, 500 ea. BOTTLE Active [id number] 4 2023 90 Pharmac y Data Transac tion Service Facilit y GABAPENTIN (GABAPENTIN ), 300 MG, CAPSULE, ORAL, ACTAVIS PHARMA,, 500 ea. BOTTLE Active [id number] 4 2023 90 Pharmac y Data Transac tion Service Facilit y GABAPENTIN (gabapentin ), 300 MG, CAPSULE, ORAL, [employer]ARMACE, 270 ea. BOTTLE Active [id number] 4 2023 270 Pharmac y Data Transac tion Service Facilit y GLIPIZIDE ER (glipizide) , 10 MG, TAB ER 24, ORAL, AUROBINDO PHARM, 100 ea. BOTTLE Active [id number] 4 2023 180 Pharmac y Data Transac tion Service Facilit y GLIPIZIDE ER (glipizide) , 10 MG, TAB ER 24, ORAL, AUROBINDO PHARM, 500 ea. BOTTLE Active [id number] 4 2023 180 Pharmac y Data Transac tion Service Facilit y LISINOPRIL (LISINOPRIL ), 2.5 MG, TABLET, ORAL, [employer], 500 ea. BOTTLE Active [id number] 4 2023 90 Pharmac y Data Transac tion Service Facilit y METFORMIN HCL ER (metformin HCl), 500 MG, TAB ER 24H, ORAL, GRANULES PHARMA, 500 ea. BOTTLE Active [id number] 4 2023 180 Pharmac y Data Transac tion Service Facilit y METOPROLOL SUCCINATE (metoprolol succinate), 25 MG, TAB ER 24H, ORAL, ACTAVIS/TEV A, 100 ea. BOTTLE Active [id number] 4 2023 90 Pharmac y Data Transac tion Service Facilit y Immunizations Combined list of available immunizations from the Department of Defense and Veterans Affairs facilities. Immunization Series Date Given Administered By Site Reaction Lot Number CVX Code Drug Material Handler Floorperson Status Comments Source COVID-19, mRNA, LNP-S, PF, 30 mcg/0.3 mL dose, linda-sucrose 2021 ROBERT FDTE[employer] [place] (PFR) Not Given COVID-19, mRNA, LNP-S, PF, 30 mcg/0.3 mL dose, linda-sucr ose DoD Social History Combined list of available smoking, tobacco, and other social history from Department of Defense and Veterans Affairs facilities. Social History Type Response Date Comment [facility] e This section is an empty social history section. DoD
== END 2024-12-02 12:03 | disposition home or self-care (01) ==
LOC: HO.HMCHD 10:55
PROVIDERS: PCP Internal Medicine; Visit Provider Internal Medicine
DX: E11.65 Type 2 diabetes mellitus with hyperglycemia (principal); G35 Multiple sclerosis; E78.5 Hyperlipidemia, unspecified; R29.898 Other symptoms and signs involving the musculoskeletal system

== ENCOUNTER 2025-01-04 10:08 | Outpatient (RCR) | payer MEDICARE, OTHER, SELFPAY ==
[2025-01-04 09:57] VITALS: BP 121/57; PULSE 67
--- NOTE | 2025-01-04 13:58 | MHC.PT.EP ---
[facility] [place] Office [place] Office [place] Office [address] Azar [address] [phone] F: [phone] F: [phone] F: [phone] F: [phone] Physical Therapy Plan of Care Date of Evaluation: 01/04/25 Date of Surgery: Diagnosis: Benign paroxysmal vertigo, unspecified ear Assessment: Pt is a pleasant 74yo M who presents to PT with dizziness. He does report his dizziness has improved a little after blood pressure medication adjustments. Upon assessment, he is negative for BPPV in all canals bilaterally. I assessed his balance and he has decreased balance with increased postural sway. He is currently attending PT for gait and balance. No PT indicated for vertigo at this time. I discussed with pt that I recommend he continue PT to work on his gait and balance. I also discussed with pt that I will leave this PT chart open for 30 days incase he has any recurrence of his symptoms and needs to be reassessed for positional vertigo Frequency and Duration: The patient will be seen Short Term Goals: Assisted Goals: Pt will continue to test negative for BPPV to decrease risk of dizziness and falls Treatment Plan: Modalities to reduce pain, spasms and effusion. Manual therapy to restore motion and function. Therapeutic exercise to improve strength and flexibility. Neuromuscular re-education for posture and balance. Therapeutic activities to return to functional activities of daily living. Electronically signed by: Latonia Guallpa, PT, DPT Please sign and return to therapist. Thank you for your referral.
--- NOTE | 2025-04-20 16:01 | MHC.PT.DC ---
[facility] [place] [facility] [place] Office [place] Office [address] Rozina Azar [address] [phone] F: [phone] F: [phone] F: [phone] F: [phone] Physical Therapy Discharge Report Diagnosis: Benign paroxysmal vertigo, unspecified ear Date of Surgery: Date of Evaluation: 01/04/25 Date of Discharge: 04/20/25 Treatments to Date: 1 Cancellations to Date: No Shows to Date: Discharge Status: Discharge Summary: Pts chart was left open for 30 days in case he had reoccurrence of symptoms. He is being D/C from this PT POC as he did not call to schedule in > 30 days. Please see assessment below from initial PT evaluation on 01/04/25: Pt is a pleasant 74yo M who presents to PT with dizziness. He does report his dizziness has improved a little after blood pressure medication adjustments. Upon assessment, he is negative for BPPV in all canals bilaterally. I assessed his balance and he has decreased balance with increased postural sway. He is currently attending PT for gait and balance. No PT indicated for vertigo at this time. I discussed with pt that I recommend he continue PT to work on his gait and balance. I also discussed with pt that I will leave this PT chart open for 30 days incase he has any recurrence of his symptoms and needs to be reassessed for positional vertigo Electronically signed by: Latonia Guallpa, PT, DPT Please sign and return to therapist. Thank you for your referral.
== END 2025-04-20 16:00 | disposition home or self-care (01) ==
LOC: HO.PT 10:08
PROVIDERS: PCP Internal Medicine; Visit Provider Internal Medicine
DX: R26.89 Other abnormalities of gait and mobility (principal); H81.10 Benign paroxysmal vertigo, unspecified ear
CPT/HCPCS: 97162

== ENCOUNTER 2025-01-31 10:49 | Outpatient (AMB) | payer MEDICARE, OTHER, SELFPAY ==
[2025-01-31 10:05] VITALS: BP 122/70; PULSE 70; TEMP 36.3; O2SAT 97; BMI 20.4
--- NOTE | 2025-01-31 10:05 | A.OFFPC_ITS ---
Vital Signs 01/31/25 10:05 Height 5 ft 10 in Weight 142 lb BMI 20.4 BP 122/70 Blood Pressure Location Rt brachial Position Sitting Pulse 70 Pulse Source Pulse Oximeter Temp 97.3 F Temp Source Axillary Pulse Oximetry (%) 97 Oxygen Delivery Method Room Air Intake Visit Reasons: Freq Urine with burn International Manager Required: No Accompanied by: Self / Same As Patient Allergies hay fever Allergy (Unknown, Uncoded 01/31/25 10:06) sob Tobacco use date assessed: 01/31/25 Fall risk assessment: No Falls in past year Last assessed Fall Risk: 01/31/25 Dental Screening Dental Screen Date: 01/31/25 Did you have a dental visit in the last 12 months?: Yes Did you have a dental problem in the last 6 months where you did not have access to dental care?: No PFSH Medical History Smoker Myocardial infarction (2015) HLD (hyperlipidemia) Diabetes Multiple sclerosis Surgical History Hx of inguinal hernia repair Hx of tonsillectomy Hx of vasectomy H/O heart artery stent Hx of colonoscopy (01/25/19) Family History (Updated 01/31/25 @ 11:14 by Niurka Reilly MA) Mother No problems noted. Father No problems noted. Social History Housing: House Patient Tobacco Use Status: Current everyday Tobacco user Tobacco use type: Cigarette Cigarettes Per Day: 20 e-Cigarette/Vaping Use: Currently Using service: No Current occupational status: retired Cognitive needs: Yes (M.S) Hearing needs: No Vision needs: Yes (Rx glasses) Questionnaire PHQ-9 Over the last 2 weeks, how often have you been bothered by any of the following problems? 1. Little interest or pleasure in doing things: not at all 2. Feeling down, depressed, or hopeless: not at all 3. Trouble falling or staying asleep, or sleeping too much: not at all 4. Feeling tired or having little energy: not at all 5. Poor appetite or overeating: not at all 6. Feeling bad about yourself - or that you are a failure or have let yourself or your family down: not at all 7. Trouble concentrating on things, such as reading the newspaper or watching television: not at all 8. Moving or speaking so slowly that other people could have noticed. Or the opposite - being so fidgety or restless that you have been moving around a lot more than usual: not at all 9. Thoughts that you would be better off or of hurting yourself in some way: not at all Total score: 0 Source: Developed by Drs. Zafar Mccarty, Christy Rodriguez, Otis Mendez and colleagues, with an educational paxton from [employer]. Thrive Questionnaire Date Thrive assessed: 01/31/25 I am a: Patient Within the past 12 months, did the food you bought not last and you didn't have the money to get more?: Never true Within the past 12 months, did you worry whether your food would run out before you got money to buy more?: Never true Do you have trouble paying for medicines?: No Do you have trouble getting transportation to medical appointments?: No Do you have trouble paying your heating and electricity bill?: No Do you have trouble taking care of your child, family member or friend?: No Do you have trouble with day-to-day activities such as bathing, preparing meals, shopping, managing finances, etc.?: No Are you currently unemployed and looking for a job?: No THRIVE Score: 0 AUDIT C Alcohol Use Questionnaire (AUDIT-C) 1. How often do you have a drink containing alcohol?: Never 3. How often do you have six or more drinks on one occasion?: Never Total Score: 0 ARMIN-7 AMB Questionnaire ARMIN-7 Date ARMIN - 7 assessed: 01/31/25 Feeling nervous, anxious, or on edge: 0 = Not at all Not being able to stop or control worryin = Not at all Worrying too much about different things: 0 = Not at all Trouble relaxin = Not at all Being so restless that it is hard to sit still: 0 = Not at all Becoming easily annoyed or irritable: 0 = Not at all Feeling afraid as if something awful might happen: 0 = Not at all Total ARMIN-7 score (0-4 normal; 5-9 mild; 10-14 moderate; 15-21 severe): 0 Source: Developed by Drs. Zafar Mccarty, Christy Rodriguez, Otis Mendez and colleagues, with an educational paxton from [employer]. Physical exam (Primary Care) Vital Signs: Last Vital Signs Temp 97.3 F 01/31/25 10:05 Pulse 70 01/31/25 10:05 BP 122/70 01/31/25 10:05 Pulse Ox 97 01/31/25 10:05 Oxygen Delivery Method Room Air 01/31/25 10:05 BMI result Body Mass Index 20.4 Tobacco/Smoking Status: Tobacco use Status Tobacco use date assessed 01/31/25 01/31/25 10:07 Patient Tobacco Use Status Current everyday Tobacco 01/31/25 10:07 Tobacco use type Cigarette 01/31/25 10:07 e-Cigarette/Vaping Use Currently Using 01/31/25 10:07 PHQ-9: PHQ-9 Score PHQ-9: Total score 0 01/31/25 11:16 Thrive Assessment: Date of Thrive Assessment Date Thrive assessed 01/31/25 01/31/25 10:07 Coding Level of Care Code Est Pt Level 4 (35756) Complex EM visit Add On G2211 Diagnoses Type 2 diabetes mellitus with hyperglycemia, without long-term current use of insulin E11.65 Diabetes mellitus complication status: with hyperglycemia Diabetes mellitus care home insulin use: without watermaster use Diabetes mellitus type: type 2 Assessment & Plan Assessment & Plan (1) Diabetes: Code(s): E11.9 - Type 2 diabetes mellitus without complications Category: Medical Qualifiers: Diabetes mellitus complication status: with hyperglycemia Diabetes mellitus care home insulin use: without watermaster use Diabetes mellitus type: type 2 Qualified Code(s): E11.65 - Type 2 diabetes mellitus with hyperglycemia Plan: History of Present Illness - The patient is a 74-year-old male presenting with symptoms suggestive of a urinary tract infection. - Reports difficulty in stopping urination and tingling sensation when attempting to stop. - No burning sensation during urination, only when trying to stop. - Has not checked blood sugar recently, despite having a machine at home. - History of multiple sclerosis, ambulates independently without a walker. - Served in the [employer] for 33 years, has a son in the [place]. 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 - Family: Has a son in the [employer]. Review of Systems - Genitourinary: Reports difficulty in stopping urination and tingling sensation when attempting to stop. Denies burning sensation during urination. - Endocrine: Has not checked blood sugar recently. Physical Exam General: Cooperative and healthy appearing Nutritional Appearance: Well nourished Orientation/consciousness: Patient oriented x3 Limitations: No limitations Head: Normal to inspection General: Appearance normal, both eyes and all related structures Neck: Normal visual inspection Chest: Normal palpation of entire chest wall Respiratory: N ormal respiratory effort Neurology: Patient oriented x3, has MS but able to ambulate on own without a walker. Results Plan 1. Urinary Tract Infection (Uti) - Start antibiotics for suspected urinary tract infection. - Conduct blood work and urine tests to confirm diagnosis. 2. Multiple Sclerosis (Ms) - No specific management plan discussed during this visit. Discussion Notes I discussed with the patient the likelihood of a urinary tract infection and the need for antibiotics. We also talked about conducting blood work and urine tests to confirm the diagnosis. I advised the patient to monitor his blood sugar levels at home and to follow up with the results. We also briefly discussed his history of multiple sclerosis and his ability to ambulate independently. Patient Instructions - Start taking the prescribed antibiotics as directed. - Go for blood work and urine tests as soon as possible. - Monitor blood sugar levels at home regularly. - Follow up with the doctor once test results are available. Orders: Orders UA and rflx microscopic Today E11.65 - Type 2 diabetes mellitus with hyperglycemia Medications: New sulfamethoxazole-trimethoprim 800-160 mg (Bactrim DS) 1 tab PO BID 14 tabs 0RF 7 days
--- OUTSIDE RECORDS SUMMARY | 2025-01-31 11:36 | XMS_ITS | Continuity of Care Document ---
Author Name [facility] Organization [facility] Care Team Providers Care Cut Off Worker Name Role Phone [facility] Unavailable Unavailable Medications Combined list of outpatient [...] ORAL, 'S LAB, 500 ea. BOTTLE Active [id number] 4 2023 90 Pharmac y Data Transac tion Service Facilit y AVONEX (INTERFERON BETA-1A), 30MCG/.5ML, SYRINGEKIT, INTRAMUSC, BIOGEN-IDEC , 1 ea. KIT Cancele d [id number] : 2023 0 Pharmac y Data Transac tion Service Facilit y BUPROPION HCL SR (bupropion HCl), 150 MG, TAB SR 12H, ORAL, [employer], 100 ea. BOTTLE Active [id number] 4 2023 90 Pharmac y Data Transac tion Service Facilit y GABAPENTIN (GABAPENTIN ), 300 MG, CAPSULE, ORAL, ACTAVIS PHARMA,, 500 ea. BOTTLE Active [id number] 4 2023 90 Pharmac y Data Transac tion Service Facilit y GABAPENTIN (GABAPENTIN ), 300 MG, CAPSULE, ORAL, ACTAVIS PHARMA,, 500 ea. BOTTLE Active [id number] 4 2023 90 Pharmac y Data Transac tion Service Facilit y GABAPENTIN (gabapentin ), 300 MG, CAPSULE, ORAL, XLCARE PHARMACE, 270 ea. BOTTLE Active [id number] 4 2023 270 Pharmac y Data Transac tion Service Facilit y GLIPIZIDE ER (glipizide) , 10 MG, TAB ER 24, ORAL, AUROBINDO PHARM, 100 ea. BOTTLE Active [id number] 4 2023 180 Pharmac y Data Transac tion Service Facilit y LISINOPRIL (LISINOPRIL ), 2.5 MG, TABLET, ORAL, [employer]CO HEALTHCAR, 500 ea. BOTTLE Active [id number] 4 2023 90 Pharmac y Data Transac tion Service Facilit y METFORMIN HCL ER (metformin HCl), 500 MG, TAB ER 24H, ORAL, GRANULES PHARMA, 500 ea. BOTTLE Active [id number] 4 2023 180 Pharmac y Data Transac tion Service Facilit y Immunizations Combined list of available immunizations from the Department of Defense and Veterans Affairs facilities. Immunization Series Date Given Administered By Site Reaction Lot Number CVX Code Drug Import Clerk Status Comments Source COVID-19, mRNA, LNP-S, PF, 30 mcg/0.3 mL dose, linda-sucrose 2021 ROBERT [employer] [place] (PFR) Not Given COVID-19, mRNA, LNP-S, PF, 30 mcg/0.3 mL dose, linda-sucr ose DoD Social History Combined list of available smoking, tobacco, and other social history from Department of Defense and Veterans Affairs facilities. Social History Type Response Date Comment [facility] e This section is an empty social history section. [facility]
== END 2025-01-31 11:43 | disposition home or self-care (01) ==
LOC: HO.HMCHD 10:50
PROVIDERS: Visit Provider Internal Medicine
DX: E11.65 Type 2 diabetes mellitus with hyperglycemia (principal)

== ENCOUNTER 2025-01-31 10:49 | Outpatient (REF) | payer MEDICARE, OTHER, SELFPAY | END 2025-01-31 10:50 | disposition home or self-care (01) | LOC: HO.10HDL 10:49 | PROVIDERS: Visit Provider Internal Medicine | DX: E11.65 Type 2 diabetes mellitus with hyperglycemia (principal); N39.0 Urinary tract infection, site not specified; G35 Multiple sclerosis | CPT/HCPCS: 96127; 99212 ==

== ENCOUNTER 2025-02-01 08:27 | Outpatient (REF) | payer MEDICARE, OTHER, SELFPAY ==
--- OUTSIDE RECORDS SUMMARY | 2024-12-03 03:30 | XMS_ITS ---
Author Organization [facility] Address [address] [place] [address] Care Team Providers Care Language Path Name Role Phone Karan Sawant MD Primary Care Provider Zafar Garcia [phone] REASON FOR VISIT screening, hx polyps Encounters Encounter Location Date Provider Diagnosis [facility] Outpatient [address] [place] [id number] 12/03/2024 Zafar Calderon Plan Of Treatment Next Appt Details Provider Name:Zafar Calderon , 03/14/2025 07:30:00 AM, [address] [place] [address], [id number], Progress Notes * SUN HERNANDES JrDOB: (74 yo M)Acc No.[id number]:12/03/2024 COLON WITH MAC Patient: Shereen LANGFORDSUN Jr Provider: Elodia Calderon MD :1950 A ge:74 Y S ex:Male Date:12/03/2024 Address:[address] [facility] Pcp:Karan Sawant MD Subjective: * Chief Complaints: [...] Generated for Anita sky/Jennifer/Jose R on: 0 02/01/2025 08:32 AM EDT
--- OUTSIDE RECORDS SUMMARY | 2025-01-31 11:36 | XMS_ITS | Continuity of Care Document ---
Author Name [facility] Organization [facility] Care Team Providers Care Gunner Mate Name Role Phone [facility] Unavailable Unavailable Medications Combined list of outpatient [...] ORAL, 'S LAB, 500 ea. BOTTLE Active [id number] 4 2023 90 Pharmac y Data Transac tion Service Facilit y AVONEX (INTERFERON BETA-1A), 30MCG/.5ML, SYRINGEKIT, INTRAMUSC, BIOGEN-IDEC , 1 ea. KIT Cancele d [id number] : 2023 0 Pharmac y Data Transac tion Service Facilit y BUPROPION HCL SR (bupropion HCl), 150 MG, TAB SR 12H, ORAL, [employer], 100 ea. BOTTLE Active [id number] 4 2023 90 Pharmac y Data Transac tion Service Facilit y GABAPENTIN (GABAPENTIN ), 300 MG, CAPSULE, ORAL, ACTAVIS PHARMA,, 500 ea. BOTTLE Active [id number] 4 2023 90 Pharmac y Data Transac tion Service Facilit y GABAPENTIN (GABAPENTIN ), 300 MG, CAPSULE, ORAL, ACTAVIS PHARMA,, 500 ea. BOTTLE Active [id number] 4 2023 90 Pharmac y Data Transac tion Service Facilit y GABAPENTIN (gabapentin ), 300 MG, CAPSULE, ORAL, XLCARE PHARMACE, 270 ea. BOTTLE Active [id number] 4 2023 270 Pharmac y Data Transac tion Service Facilit y GLIPIZIDE ER (glipizide) , 10 MG, TAB ER 24, ORAL, AUROBINDO PHARM, 100 ea. BOTTLE Active [id number] 4 2023 180 Pharmac y Data Transac tion Service Facilit y LISINOPRIL (LISINOPRIL ), 2.5 MG, TABLET, ORAL, [employer]CO HEALTHCAR, 500 ea. BOTTLE Active [id number] 4 2023 90 Pharmac y Data Transac tion Service Facilit y METFORMIN HCL ER (metformin HCl), 500 MG, TAB ER 24H, ORAL, GRANULES PHARMA, 500 ea. BOTTLE Active [id number] 4 2023 180 Pharmac y Data Transac tion Service Facilit y Immunizations Combined list of available immunizations from the Department of Defense and Veterans Affairs facilities. Immunization Series Date Given Administered By Site Reaction Lot Number CVX Code Drug Clean Out Driller Status Comments Source COVID-19, mRNA, LNP-S, PF, 30 mcg/0.3 mL dose, linda-sucrose 2021 ROBERT [employer] [facility] [place] (PFR) Not Given COVID-19, mRNA, LNP-S, PF, 30 mcg/0.3 mL dose, linda-sucr ose DoD Social History Combined list of available smoking, tobacco, and other social history from Department of Defense and Veterans Affairs facilities. Social History Type Response Date Comment [facility] e This section is an empty social history section. [facility]
[2025-02-01 09:46] LABS: MANUAL DIFF FLAG NO
[2025-02-01 09:51] LABS: Hematocrit 42.0 % (42.0-52.0); Hemoglobin 14.0 g/dl (14.0-18.0); Imm Gran Abs Auto 0.05 X10*3/uL (0.00-0.03); Imm Gran Pct Auto 0.4 % (0.0-0.4); Lymphocytes Absolute Auto 2.3 X10*3/uL (1.2-4.9); Mean Corpuscular HGB Conc 33.3 g/dl (31.0-36.0); Mean Corpuscular Hemoglobin 29.9 pg (27.0-33.0); Mean Corpuscular Volume 89.6 fL (80.0-98.0); NRBC Abs Auto 0.000 X10*3/uL (0.0-0.012); NRBC Pct Auto 0.0 /100WBC (0.0-0.2); Platelet Count 262 X10*3/uL (160-400); Red Blood Count 4.69 X10*6/uL (4.60-5.80); White Blood Count 12.5 X10*3/uL (4.8-10.8)
[2025-02-01 09:59] LABS: Hemoglobin A1C 209.2576 umol/L; Total Hemoglobin (HGBA1C) 3608.8907 umol/L
[2025-02-01 10:06] LABS: Alanine Aminotransferase 32 U/L (0-40); Albumin Level 4.4 g/dL (3.5-5.0); Alkaline Phosphatase 81 U/L (39-117); Anion Gap 13 (12-20); Aspartate Amino Transferase 22 U/L (5-37); Blood Urea Nitrogen 19 mg/dL (9-16); Calcium 9.1 mg/dL (8.4-10.2); Carbon Dioxide 24 mmol/L (22-29); Chloride 107 mmol/L (96-108); Cholesterol 83 mg/dL (<200); Estimated Glomerular Filt Rate > 60; HDL Cholesterol 30 mg/dL (>40); Potassium 4.4 mmol/L (3.3-5.1); Sodium 140 mmol/L (135-145); Total Protein 6.5 g/dL (6.5-8.0); Triglycerides 87 mg/dL (<150)
[2025-02-01 10:18] LABS: Appearance Urine Clear; Glucose Urine UA Negative (Negative); PH 6.0 (5.0-9.0); Specific Gravity - Urine 1.020 (1.005-1.025); UMIC TRIGGER UA YES
[2025-02-01 10:24] LABS: Prostate Specific Antigen 0.78 ng/mL (<0.05-4.0)
== END 2025-02-01 08:28 | disposition home or self-care (01) ==
LOC: HO.10HDL 08:27
PROVIDERS: Visit Provider Internal Medicine
DX: E11.9 Type 2 diabetes mellitus without complications (principal); E78.5 Hyperlipidemia, unspecified; I21.9 Acute myocardial infarction, unspecified; Z12.5 Encounter for screening for malignant neoplasm of prostate
CPT/HCPCS: 36415; 80053; 80061; 81001; 81003; 83036; 84153; 85025

== ENCOUNTER → 2025-02-03 10:15 | Outpatient (BNV) | payer MEDICARE, OTHER, SELFPAY | PROVIDERS: Visit Provider Radiology Diagnostic Radiology | DX: G35 Multiple sclerosis (principal) | CPT/HCPCS: 70553 ==

== ENCOUNTER 2025-02-03 11:06 | Outpatient (REF) | payer MEDICARE, OTHER, SELFPAY ==
--- OUTSIDE RECORDS SUMMARY | 2024-12-03 03:30 | XMS_ITS ---
Author Organization [facility] Address [address] [place] [address] Care Team Providers Care Chandelier Maker Name Role Phone Karan Sawant MD Primary Care Provider Zafar Garcia [phone] REASON FOR VISIT screening, hx polyps Encounters Encounter Location Date Provider Diagnosis [facility] [place] [address] [place] [phone] 12/03/2024 Zafar Calderon Plan Of Treatment Next Appt Details Provider Name:Zafar Calderon , 03/14/2025 07:30:00 AM, [address] [place] [address], [id number], Progress Notes * SUN HERNANDES JrDOB: (74 yo M)Acc No.[id number]:12/03/2024 COLON WITH MAC Patient: Shereen LANGFORDSUN Jr Provider: Elodia Calderon MD :1950 A ge:74 Y S ex:Male Date:12/03/2024 Address[address] [facility] Pcp:Karan Sawant MD Subjective: * Chief Complaints: * 1 . [...] Calderon MD Date: 0 12/03/2024 Generated for Anita sky/Jennifer/Jose R on: 0 02/03/2025 11:59 AM EDT
--- NOTE | ~2025-02-03 | MR_ITS ---
EXAMINATION: MR BRAIN WITHOUT AND WITH CONTRAST CLINICAL INFORMATION: Multiple sclerosis.. COMPARISON: Unable able atelectasis 2. TECHNIQUE: Multiplanar, multisequence MRI of the brain was obtained before and after the intravenous administration of 7 mL of Gadavist. FINDINGS: There is no restricted diffusion seen to suspect any acute ischemia or acute demyelinating plaques. There is extensive T2 FLAIR signal changes in periventricular and subcortical white matter of both cerebral hemispheres without mass effect. The subcortical lesions are more rounded especially in the right frontal lobe. There is no enhancement seen on the postcontrast exam no edema or mass effect seen. Normal flow-void signal seen in major intracranial vessels. Postcontrast is there no abnormal intraparenchymal or extra-axial dural enhancement. The lateral ventricles are symmetrical in size and configuration but moderately enlarged. There is mild prominence of cortical sulci as well. There is no abnormal signal enhancement seen in the posterior fossa. The paranasal sinuses are well-aerated and clear. There is mild mucoperiosteal thickening bilateral mastoid sinuses.. Dental artifacts are noted in the oral cavity from abnormality or dimension. MR/MR head/brain wo/w con IMPRESSION: No acute intracranial process seen. Extensive white matter changes involving the peripheral white white matter suggestive of chronic demyelination/or mass. No acute enhancement seen to suspect any acute plaques. There are no previous MRI of the liver for comparison. Electronically signed by: Isaac Owens MD 02/03/2025 01:23 PM EDT
--- OUTSIDE RECORDS SUMMARY | 2025-02-03 11:58 | XMS_ITS | Continuity of Care Document ---
Author Name [facility] Organization [facility] Care Team Providers Care Silk Screener Name Role Phone [facility] Unavailable Unavailable Medications Combined list of outpatient [...] ORAL, 'S LAB, 500 ea. BOTTLE Active [id number] 4 2023 90 Pharmac y Data Transac tion Service Facilit y AVONEX (INTERFERON BETA-1A), 30MCG/.5ML, SYRINGEKIT, INTRAMUSC, BIOGEN-IDEC , 1 ea. KIT Cancele d [id number] : 2023 0 Pharmac y Data Transac tion Service Facilit y BUPROPION HCL SR (bupropion HCl), 150 MG, TAB SR 12H, ORAL, [employer], 100 ea. BOTTLE Active [id number] 4 2023 90 Pharmac y Data Transac tion Service Facilit y GABAPENTIN (GABAPENTIN ), 300 MG, CAPSULE, ORAL, ACTAVIS PHARMA,, 500 ea. BOTTLE Active [id number] 4 2023 90 Pharmac y Data Transac tion Service Facilit y GABAPENTIN (GABAPENTIN ), 300 MG, CAPSULE, ORAL, ACTAVIS PHARMA,, 500 ea. BOTTLE Active [id number] 2023 90 Pharmac y Data Transac tion Service Facilit y GABAPENTIN (gabapentin ), 300 MG, CAPSULE, ORAL, XLCARE PHARMACE, 270 ea. BOTTLE Active [id number] 4 2023 270 Pharmac y Data Transac tion Service Facilit y GLIPIZIDE ER (glipizide) , 10 MG, TAB ER 24, ORAL, AUROBINDO PHARM, 100 ea. BOTTLE Active [id number] 2023 180 Pharmac y Data Transac tion Service Facilit y LISINOPRIL (LISINOPRIL ), 2.5 MG, TABLET, ORAL, [employer] HE[employer], 500 ea. BOTTLE Active [id number] 4 2023 90 Pharmac y Data Transac tion Service Facilit y METFORMIN HCL ER (metformin HCl), 500 MG, TAB ER 24H, ORAL, GRANULES PHARMA, 500 ea. BOTTLE Active [id number] 2023 180 Pharmac y Data Transac tion Service Facilit y Immunizations Combined list of available immunizations from the Department of Defense and Veterans Affairs facilities. Immunization Series Date Given Administered By Site Reaction Lot Number CVX Code Drug Line Worker Status Comments Source COVID-19, mRNA, LNP-S, PF, 30 mcg/0.3 mL dose, linda-sucrose 2021 ROBERT [employer] [place] (PFR) Not Given COVID-19, mRNA, LNP-S, PF, 30 mcg/0.3 mL dose, linda-sucr ose DoD Social History Combined list of available smoking, tobacco, and other social history from Department of Defense and Veterans Affairs facilities. Social History Type Response Date Comment [facility] e This section is an empty social history section. [facility]
== END 2025-02-03 11:07 | disposition home or self-care (01) ==
LOC: HO.MRI 11:06
PROVIDERS: Visit Provider Registered Nurse
DX: G35 Multiple sclerosis (principal)
CPT/HCPCS: 70553; A9585

== ENCOUNTER 2025-03-11 10:06 | Outpatient (AMB) | payer MEDICARE, OTHER, SELFPAY ==
--- NOTE | 2025-03-11 10:08 | MHC.OFFVIS ---
Intake Visit Reasons: paper work Accompanied by: Spouse Allergies hay fever Allergy (Unknown, Uncoded 03/11/25 10:24) sob Medication List - Last Reconciled 03/11/25 by Genet Wang CNP aspirin 81 mg PO DAILY atorvastatin 80 mg PO DAILY bupropion HCl SR 150 mg PO BID FreeStyle Lancets (lancets) once daily and as needed for hypoglycemia NS FreeStyle Lite Meter (blood-glucose meter) As directed NS FreeStyle Lite Strips (blood sugar diagnostic) once daily NS gabapentin 300 mg PO TID glipizide ER 5 mg PO DAILY interferon beta-1a (Avonex) 30 mcg IM QWEEK interferon beta-1a (Avonex) 30 mcg IM QWEEK lisinopril 2.5 mg PO DAILY metformin ER 1,000 mg PO BID metoprolol succinate ER 25 mg PO DAILY sitagliptin phosphate (Januvia) 100 mg PO DAILY sulfamethoxazole-trimethoprim 800-160 mg (Bactrim DS) 1 tab PO BID 7 days tamsulosin 0.4 mg PO BEDTIME HPI Comments Details: MS stable on weekly Avonex injection. Balance was not so good. Has had few more falls without significant injury over the last 2 months. He does not use cane or walker. He uses scooter for longer distances. He had prefabricated AFO before, but it did not help and seemed to get in the way more. He started PT in 12/2024 and it was determined he would benefit from custom AFO. PT was on hold for now until he had new AFO. He was planning to go back to [place] with his from 05/2025-12/2025. He saw provider while in [place] earlier this year that increased dose of bupropion. He fell and fractured R ribs earlier this year in [place] when trying to untangle dogs. Ongoing LBP, stable with gabapentin. It started after a fall on 02/18/21, MRI shows [address] Aponte who recommended pain meds and PT at the time. Some trouble sleeping and fatigue. He has relapsing remitting MS on the weekly Avonex injection. Decided not to switch to [employer]. [facility] Medical History (Updated 03/11/25 @ 10:40 by Genet Wang CNP) CAD (coronary artery disease) Smoker Myocardial infarction (2016) HLD (hyperlipidemia) Diabetes Multiple sclerosis Surgical History Hx of inguinal hernia repair Hx of tonsillectomy Hx of vasectomy H/O heart artery stent Hx of colonoscopy (01/25/19) Family History (Updated 01/31/25 @ 11:14 by Niurka Reilly MA) Mother No problems noted. Father No problems noted. Social History Housing: House Patient Tobacco Use Status: Current everyday Tobacco user Tobacco use type: Cigarette Cigarettes Per Day: 20 e-Cigarette/Vaping Use: Currently Using service: No Current occupational status: retired Cognitive needs: Yes (M.S) Hearing needs: No Vision needs: Yes (Rx glasses) Review of Systems Const Denies chills, Denies daytime sleepiness, Denies difficulty sleeping, Reports fatigue, Denies fever(s), Reports frequent falls, Denies headache(s), Denies increased appetite, Denies poor appetite, Denies snoring, Denies weakness, Denies weight gain and Denies weight loss Eyes Denies loss of vision ENT Denies vertigo, Denies dizziness, Denies headache(s) and Denies neck pain Card Denies chest pain at rest, Denies chest pain with activity, Denies syncope, Denies leg edema, Denies palpitations, Denies dyspnea and Denies dyspnea on exertion Resp Denies cough, Denies dyspnea, Denies dyspnea on exertion and Denies snoring GI Denies abdominal pain, Denies constipation, Denies heartburn, Denies diarrhea and Denies nausea Denies urinary frequency, Denies urinary incontinence and Denies urinary urgency Musc Reports abnormal gait, Reports back pain, Denies myalgias, Denies arthralgias, Denies neck pain, Denies numbness and Denies tingling Neuro Reports abnormal gait, Denies vertigo, Denies dizziness, Denies syncope, Reports frequent falls, Denies headache(s), Denies lack of coordination, Denies loss of vision, Denies memory loss, Denies numbness, Denies Other visual disturbances, Denies restless legs, Denies seizure-like activity, Denies tingling, Denies paresthesias, Denies tremor(s) and Denies weakness Psych Denies anxiety, Denies depression, Denies auditory hallucinations, Denies memory loss and Denies visual hallucinations Endo Reports fatigue and Denies palpitations Physical Exam Const Other: Unable to do due to televisit. Telehealth Telehealth Telehealth Platform: Telephone Location of provider rendering services: practice address Location of patient: address on file Patient Identification confirmed using: Name, : Yes Telehealth method: voice only Patient verbally consented to treatment: Yes Patient verbally consented to billing insurance company: Yes Patient informed of any privacy concerns related to visit: Yes Results Reviewed Results Reviewed: Laboratory Tests 02/01/25 08:30 WBC 12.5 H RBC 4.69 Hgb 14.0 Hct 42.0 MCV 89.6 MCH 29.9 MCHC 33.3 RDW 13.3 Plt Count 262 MPV 10.3 Immature Gran % (Auto) 0.4 Neut % (Auto) 70.4 Lymph % (Auto) 18.2 L [place] % (Auto) 5.6 Eos % (Auto) 5.0 H Baso % (Auto) 0.4 Lymph # (Auto) 2.3 [place] # (Auto) 0.7 Eos # (Auto) 0.6 H Baso # (Auto) 0.1 Abs Immat Gran (auto) 0.05 H Absolute Neuts (auto) 8.8 H Absolute Nucleated RBC 0.000 Nucleated RBC % (auto) 0.0 Sodium 140 Potassium 4.4 Chloride 107 Carbon Dioxide 24 Anion Gap 13 BUN 19 H Creatinine 0.94 Estimated GFR > 60 Random Glucose 234 H Estimat Average Glucose 169 Hemoglobin A1c % 7.5 H Calcium 9.1 Total Bilirubin 0.5 AST 22 ALT 32 Alkaline Phosphatase 81 Total Protein 6.5 Albumin 4.4 Triglycerides 87 Cholesterol 83 LDL Cholesterol, Calc 36 HDL Cholesterol 30 L [place] [id number] Magnetic Resonance Report Signed Patient: Israel Grant MR#: [id number] : 1950 Acct:[id number] Age/Sex: 74 / M ADM Date: 02/03/25 Loc: HO.MRI Attending Dr: Genet Wang CNP Ordering Physician: Genet Wang CNP Date of Service: 02/03/25 Procedure(s): MR head/brain wo/w con Accession Number(s): [id number] cc: Physician,Unknown ; Genet Wang ORACLE PROGRAMMER ANALYST~ EXAMINATION: MR BRAIN WITHOUT AND WITH CONTRAST CLINICAL INFORMATION: Multiple sclerosis.. COMPARISON: Unable able atelectasis 2. TECHNIQUE: Multiplanar, multisequence MRI of the brain was obtained before and after the intravenous administration of 7 mL of Gadavist. FINDINGS: There is no restricted diffusion seen to suspect any acute ischemia or acute demyelinating plaques. There is extensive T2 FLAIR signal changes in periventricular and subcortical white matter of both cerebral hemispheres without mass effect. The subcortical lesions are more rounded especially in the right frontal lobe. There is no enhancement seen on the postcontrast exam no edema or mass effect seen. Normal flow-void signal seen in major intracranial vessels. Postcontrast is there no abnormal intraparenchymal or extra-axial dural enhancement. The lateral ventricles are symmetrical in size and configuration but moderately enlarged. There is mild prominence of cortical sulci as well. There is no abnormal signal enhancement seen in the posterior fossa. The paranasal sinuses are well-aerated and clear. There is mild mucoperiosteal thickening bilateral mastoid sinuses.. Dental artifacts are noted in the oral cavity from abnormality or dimension. MR/MR head/brain wo/w con IMPRESSION: No acute intracranial process seen. Extensive white matter changes involving the peripheral white white matter suggestive of chronic demyelination/or mass. No acute enhancement seen to suspect any acute plaques. There are no previous MRI of the liver for comparison. Electronically signed by: Isaac Owens MD 02/03/2025 01:23 PM EDT --- 03/2022 LS spine XR: Bilateral L5 spondylolysis without spondylolisthesis. There is somerelatively mild degenerative change with disc narrowing greatest atL4/L5. Assessment & Plan Assessment & Plan (1) Multiple sclerosis: Comment: since age 25 Code(s): G35 - Multiple sclerosis Category: Medical Plan: MRI results reviewed with patient and his , no active lesions. Continue Avonex Prefilled Syringe Kit 30mcg/0.5mL 0.5mL IM weekly. Will complete orders/forms and letter of medical necessity from [employer] for custom AFO. He will restart PT once AFO is received. (2) Lumbar radiculopathy: Code(s): M54.16 - Radiculopathy, lumbar region Category: Medical Plan: . Coding Level of Care Code Tele Est Pt Level 4 (03436) Diagnoses Multiple sclerosis G35 Lumbar radiculopathy M54.16
--- OUTSIDE RECORDS SUMMARY | 2025-03-11 10:10 | XMS_ITS | Patient Health Record ---
Author Organization [facility] Address [address] [place] [address] Care Team Providers Care Size Mixer Name Role Phone Jese (RETIRED) Karan CARTER Primary Care Provide r Unavailable Zafar Calderon Unavailable [phone] Allergies No Known Allergies Reason For Referral [...] Problem Status W/U Status Risk Notes Problem [id number] Encounter for screening for malignant neoplasm of colon (Z12.11) Active confirmed Problem 287004963 Hx of adenomatous colonic polyps (Z86.010) Active confirmed Problem 716174982045548 Encounter for long-term (current) aspirin use (Z79.82) Active confirmed Problem Personal history of adenomatous and serrated colon polyps (Z86.0101) Active confirmed Vital Signs Temperature 97.1 degrees Fahrenheit 08/11/2024 Blood pressure diastolic 00 mm Hg 08/11/2024 Height 69 in 08/11/2024 Blood pressure systolic 000 mm Hg 08/11/2024 Weight 165 lbs 08/11/2024 BMI 24.36 kg/m2 08/11/2024 Encounters Encounter Location Date Provider Diagnosis [facility] [address] [place] [id number] 08/11/2024 Zafar Calderon Hx of adenomatous colonic polyps Z86.010 ; Encounter for long-term (current) aspirin use Z79.82 and Encounter for screening for malignant neoplasm of colon Z12.11 [facility] [address] [place] [phone] 12/01/2024 Zafar Calderon Assessments Encounter Date Diagnosis (ICD Code) Assessment [...] COLONOSCOPY 08/11/2024 Next Appt Details Provider Name:Zafar Calderon , 03/14/2025 07:30:00 AM, [facility] , [place], [place], [id number], Insurance Providers Payer Name Payer Address Payer Phone Subscriber Number Group Number Insured Name Patient Relationship to Insured Coverage Start Date Coverage End Date MEDICARE OF [place] [address] [place] [address] [id number] SUN HERNANDES Self - patient is the insured [id number] [address] [place] [address] [id number] SUN HERNANDES Self - patient is the insured Medical (General) History Medical History History ICD Code Colonoscopy 08-31-2001-tubular adenoma re moved Neg. colonoscopy in 05/2007 except for h yperplastic poyps Multiple sclerosis since age 25 NIDDM Denies CVA,Lung disease,renal disease Hyperlipidemia [place] 2016- stent placed Colonoscopy 01/2013--- 2 small tubular ad enomas removed Colonoscopy 01/2019 1 tubular adenoma rem anila Surgical History Surgery Date(Month/Year) Vasetomy Tonsillectomy Hernia repair-inguinal
== END 2025-03-11 11:25 | disposition home or self-care (01) ==
LOC: HO.HSM 10:06
PROVIDERS: PCP Internal Medicine; Visit Provider Registered Nurse
DX: G35 Multiple sclerosis (principal); M54.16 Radiculopathy, lumbar region
CPT/HCPCS: 99214

== ENCOUNTER 2025-03-14 06:18 | Day surgery (SDC) | payer MEDICARE, OTHER, SELFPAY ==
--- OUTSIDE RECORDS SUMMARY | 2024-11-11 12:17 | XMS_ITS ---
Author Organization [facility] Address [address] [place] [address] Care Team Providers Care Profiler Hand Name Role Phone Karan Sawant MD Primary Care Provider Zafar Garcia Unavailable [phone] Allergies No Known Allergies REASON FOR VISIT Patient presents today for a recall colonoscopy Medications Medication SIG (Take, Route, Frequency, Duration) Notes Start Date End Date Status buPROPion HCl ER (SR) 150 MG 1 tablet in the morning Orally Once a day Active Tamsulosin HCl 0.4 MG TAKE 1 CAPSULE BY MOUTH AT BEDTIME Oral for 90 Active Avonex 30 MCG as directed Intramus [...] day for 30 day(s) Active metFORMIN HCl ER 500 MG Oral for 90 Active Avonex Prefilled 30 MCG/0.5ML Intramuscular for 84 Active Gabapentin 300 MG Oral for 90 Active Aspir-81 81 MG 1 tablet Orally Once a day for 30 day(s) Active Metoprolol Succinate ER 25 MG 1 tablet Orally Once a day for 30 day(s) Active Immunizations Vaccine Route Administration Date Status Comme nts Influenza Unknown 08/11/2024 Refused Social History Tobacco Use: Social History Observation Description Date Details (start date - stop date) Current Smoker NA - NA Tobacco Use/Smoking Question Answer Notes Patient is [...] ast year? No Points 0 Interpretation Negative Section Notes: Smoker 1 ppd; no alcohol Problems Problem Type SNOMED Code ICD Code Onset Dates Problem Status W/U Status Risk Notes Problem Personal history of adenomatous and serrated colon polyps (Z86.0101) Active confirmed Vital Signs Temperature 97.1 degrees Fahrenheit 08/11/19 25 Blood pressure systolic 000 mm Hg 08/11/19 25 Blood pressure diastolic 00 mm Hg 025 Height 69 in 08/11/2024 Weight 165 lbs 08/11/2024 BMI 24.36 kg/m2 08/11/2024 Encounters Encounter Location Date Provider Diagnosis [facility] [address] [place] [address] 08/11/2024 Zafar Calderon Hx of adenomatous colonic polyps Z86.010 ; Encounter for long-term (current) aspirin use Z79.82 and Encounter for screening for malignant neoplasm of colon Z12.11 Assessments Encounter Date Diagnosis (ICD Code) Assessment Notes Treatment Notes Treatment Clinical Notes Section Notes 08/11/2024 Hx of adenomatous colonic polyps (ICD-10 - Z86.010) Do not take the Metformin or Glipizide the night before or on the morning of the colonoscopy Do not take the aspirin on the morning of the colonosocpy Overall, Prince is not having any new nor worrisome GI complaints. Given his history of tubular adenomas and his last colonoscopy being over 5 years ago, I did recommend a followup colonoscopy for further screening purposes. We did review the rationale for that in regard to colon cancer prevention. Full consent is obtained for this, including risks of bleeding and perforation. The procedure will be done with monitored anesthesia care. He was given the below instructions regarding adjustment of his medications for the procedure. Prince was comfortable with this plan. Thank you again for allowing me to participate in Prince's care. I shall continue to keep you advised of his progress. 08/11/2024 Encounter for long-term (current) aspirin use (ICD-10 - Z79.82) Overall, Prince is not having any new nor worrisome GI complaints. Given his history of tubular adenomas and his last colonoscopy being over 5 years ago, I did recommend a followup colonoscopy for further screening purposes. We did review the rationale for that in regard to colon cancer prevention. Full consent is obtained for this, including risks of bleeding and perforation. The procedure will be done with monitored anesthesia care. He was given the below instructions regarding adjustment of his medications for the procedure. Prince was comfortable with this plan. Thank you again for allowing me to participate in Prince's care. I shall continue to keep you advised of his progress. 08/11/2024 Encounter for screening for malignant neoplasm of colon (ICD-10 - Z12.11) Overall, Prince is not having any new nor worrisome GI complaints. Given his history of tubular adenomas and his last colonoscopy being over 5 years ago, I did recommend a followup colonoscopy for further screening purposes. We did review the rationale for that in regard to colon cancer prevention. Full consent is obtained for this, including risks of bleeding and perforation. The procedure will be done with monitored anesthesia care. He was given the below instructions regarding adjustment of his medications for the procedure. Prince was comfortable with this plan. Thank you again for allowing me to participate in Prince's care. I shall continue to keep you advised of his progress. Plan Of Treatment Treatment Notes Assessment Notes Hx of adenomatous colonic polyps Do not take the Metformin or Glipizide the night before or on the morning of the colonoscopy Do not take the aspirin on the morning of the colonosocpy Future Test Test Name Order Date COLONOSCOPY 08/11/2024 Next Appt Details Follow Up: prn, Reason: Provider Name:Zafar Calderon , 12/03/2024 07:30:00 AM, [address] [place] [address], [id number], Progress Notes * SUN HERNANDES JrDOB: (74 yo M)Acc No.[id number]:08/11/2024 Progress Notes Patient:?SUN HERNANDES Provider:?Zafar Calderon MD :1950???Age:74 Y???Sex:Male Eliel e:08/11/2024 Address:[address] [place], [place] [id number] Pcp:Karan Sawant MD Subjective: * Chief Complaints: * ???Patient presents today fo r a recall colonoscopy * HPI: ???incontinence:? I saw Prince in the office today for evaluation of his personal history of tubular adenomas of the colon and need for colorectal cancer screening. ?I last saw Prince in January of 2019, at which time he underwent a followup colonoscopy with removal of a tubular adenoma. He has had previous colonoscopies with removal of tubular adenomas as well. He presently feels well from a GI standpoint. He enjoys a good appetite and denies anysignificant heartburn or dysphagia. His bowel movements are regular and without any signs of bleeding. He denies abdominal pain, unintentional weight loss, nor jaundice. He denies any known family history of colorectal cancer. * ROS:?General/Constitutional:?Change in appetite?denies.?Chills?denies.?Fatigue?denies.?Ophthalmologic:?Comments?all negative.?ENT:?Comments?all negative.?Respiratory:?hemoptysis?denies.?Cough?denies.?Cardiovascular:?Chest pain?denies.?Orthopnea?denies.?Gastrointestinal:?Comments?See HPI for details.?Genitourinary:?Hematuria?denies.?Dysuria?denies.?Musculoskeletal:?Painful joints?denies.?Weakness?denies.?Skin:?Itching?denies.?Rash?denies.?Neurologic:?Headache?denies.?Seizures?denies.?Psychiatric:?Comments?all negative.? * Medical History:? * Surgical History:?Vasetomy T onsillectomy Hernia repair-inguinal * Hospitalization/Major Diagno stic Procedure:?No Hospitalization History. * Family History:?Father: dece ased.?Mother: , diagnosed with Diabetes.? There is no family history of colorectal cancer, polyps, nor inflammatory bowel disease. No family history of liver cancer. * Social History:?Tobacco Use:?Tobacco Use/Smoking?Patient is a?current smoker,?How often do you smoke cigarettes??every day,?How many cigarettes a day do you smoke??11-20,?How soon after you wake up do you smoke your first cigarette??6-30 minutes,?Are you interested in quitting??Thinking about quitting.?Drugs/Alcohol:?Alcohol Screen?Did you have a drink containing alcohol in the past year??No,?Points?0,?Interpretation?Negative.?Miscellaneous:?Marital status: . Occupation: disabled. ???Smoker 1 ppd; no alcohol. * Medications:?TakingbuPROPion HCl ER (SR) 150 MG Tablet Extended Release 12 Hour 1 tablet in the morning Orally Once a dayAvonex 30 MCG Kit as directed Intramuscular ONCE A WEEKAtorvastatin Calcium 80 MG Tablet 1 tablet Orally Once a dayglipiZIDE ER 2.5 MG Tablet Extended Release 24 Hour 1 tablet with breakfast Orally Once a dayMetoprolol Succinate ER 25 MG Tablet Extended Release 24 Hour 1 tablet Orally Once a dayAspir-81 81 MG Tablet Delayed Release 1 tablet Orally Once a dayLisinopril 2.5 MG Tablet 1 tablet Orally Once a daymetFORMIN HCl 500 MG Tablet 1 tablet with a meal Orally Once a daymetFORMIN HCl ER 500 MG Tablet Extended Release 24 Hour Oral Avonex Prefilled 30 MCG/0.5ML Prefilled Syringe Kit Intramuscular Gabapentin 300 MG Capsule Oral Tamsulosin HCl 0.4 MG Capsule TAKE 1 CAPSULE BY MOUTH AT BEDTIME Oral Medication List reviewed and reconciled with the patientTaking buPROPion HCl ER (SR) 150 MG Tablet Extended Release 12 Hour 1 tablet in the morning Orally Once a dayTaking Avonex 30 MCG Kit as directed Intramuscular ONCE A WEEKTaking Atorvastatin Calcium 80 MG Tablet 1 tablet Orally Once a dayTaking glipiZIDE ER 2.5 MG Tablet Extended Release 24 Hour 1 tablet with breakfast Orally Once a dayTaking Metoprolol Succinate ER 25 MG Tablet Extended Release 24 Hour 1 tablet Orally Once a dayTaking Aspir- 81 81 MG Tablet Delayed Release 1 tablet Orally Once a dayTaking Lisinopril 2.5 MG Tablet 1 tablet Orally Once a dayTaking metFORMIN HCl 500 MG Tablet 1 tablet with a meal Orally Once a dayTaking metFORMIN HCl ER 500 MG Tablet Extended Release 24 Hour Oral Taking Avonex Prefilled 30 MCG/0.5ML Prefilled Syringe Kit Intramuscular Taking Gabapentin 300 MG Capsule Oral Taking Tamsulosin HCl 0.4 MG Capsule TAKE 1 CAPSULE BY MOUTH AT BEDTIME Oral Medication List reviewed and reconciled with the patient * Allergies:?N.K.D.A.yes[Aller gies Verified] Objective: * Vitals:?Wt: 165 lbs, Ht: 69 in, BMI:24.36 Index, BP: 000/00 mm Hg, Temp: 97.1. * Examination: ???General Examination: ?GENERAL APPEARANCE:?pleasant, well nourished, well developed, in no acute distress.?EYES:?sclera non-icteric.?ORAL CAVITY:?mucosa moist.?NECK/THYROID:?no cervical lymphadenopathy, neck supple.?SKIN:?nonjaundiced, no spider angiomata.?HEART:?S1, S2 normal.?LUNGS:?clear to auscultation bilaterally.?ABDOMEN:?normal bowel sounds, no guarding or rigidity, no guarding or rigidity, no masses palpable, soft, nontender, nondistended.?EXTREMITIES:?no edema.?NEUROLOGIC:?alert and oriented.? Assessment: * Assessment: 1.?Encounter for long-term ( current) aspirin use - Z79.82 (Primary)?2.?Hx of adenomatous colonic polyps - Z86.010?3.?Encounter for screening for malignant neoplasm of colon - Z12.11? Overall, Prince is not having any new nor worrisome GI complaints. Given his history of tubular adenomas and his last colonoscopy being over 5 years ago, I did recommend a followup colonoscopy for further screening purposes. We did review the rationale for that in regard to colon cancer prevention. Full consent is obtained for this, including risks of bleeding and perforation. The procedure will be done with monitored anesthesia care. He was given the below instructions regarding adjustment of his medications for the procedure. Prince was comfortable with this plan. Thank you again for allowing me to participate in Prince's care. I shall continue to keep you advised of his progress. Plan: * Treatment: Notes: Do not take the Metformin or Glipizide the night before or on the morning of the colonoscopy Do not take the aspirin on the morning of the colonosocpy??2.?Encounter for screening for malignant neoplasm of colon?Procedure: COLONOSCOPY (Ordered for 08/11/2024)* with MACsched for 12/03/24 at 7:30 ammiralax * Immunizations:? Influenza (Not administered - Refused: Patient decision) * Procedure Codes:?3017F COLOR ECTAL CA SCREEN DOC [id number] Pt scrn tbco and id as [id number] BP SCR NOT PRFRM REC REASON NOS * Preventive Medicine:? ??Counseling:?Care goal follow-up plan:?Above Normal BMI Follow-up?Giving encouragement to exercise,?BMI management provided?Yes.? ??Screenings:?Fall Risk Screening?Fall Risk Assessment:?Two or more falls with injury in the past year,?Screening:?Two or more falls with injury in the past year,?Assessment:?Not performed, no reason specified,?Plan of Care:?Documented,?Type of fall plan of care:?Balance, strength and gait training or instruction provided.? * Follow Up:?prn * * Sign off status: Completed true * Provider:?Zafar Calderon MD Date:? 025 Generated for Anita sky/Jennifer/Kettysmitting on:?11/11/2024 12:17 PM EDT History and Physical Notes * HPI (History of Present Illness) Category Sub-Category Detail Notes Category Not es incontinence I saw Prince in the office today for evaluation of his personal history of tubular adenomas of the colon and need for colorectal cancer screening. I last saw Prince in January of 2019, at which time he underwent a followup colonoscopy with removal of a tubular adenoma. He has had previous colonoscopies with removal of tubular adenomas as well. He presently feels well from a GI standpoint. He enjoys a good appetite and denies anysignificant heartburn or dysphagia. His bowel movements are regular and without any signs of bleeding. He denies abdominal pain, unintentional weight loss, nor jaundice. He denies any known family history of colorectal cancer. Examination Category Sub-Category Detail Notes Category Not es General Examination GENERAL APPEARANCE: pleasant , well nourished, well developed, in no acute distress HEAD: EYES: sclera non-icteric EARS: NOSE: THROAT: NECK/THYROID: no cervical lymphade nopathy, neck supple HEART: S1, S2 normal CHEST: LUNGS: clear to auscultatio n bilaterally ABDOMEN: normal bowel sounds, no guarding or rigidity, no guarding or rigidity, no masses palpable, soft, nontender, nondistended NEUROLOGIC: alert and oriented SKIN: nonjaundiced, no spi mya angiomata EXTREMITIES: no edema PERIPHERAL PULSES: BACK: BREASTS: MUSCULOSKELETAL: MALE GENITOURINARY: LYMPH NODES: RECTAL EXAM: FEMALE GENITOURINARY: ORAL CAVITY: mucosa moist
--- OUTSIDE RECORDS SUMMARY | 2024-11-11 12:17 | XMS_ITS ---
Author Organization [facility] Address [address] [place] [phone] Care Team Providers Care Invoicing Machine Operator Name Role Phone Karan Sawant MD Primary Care Provider Zafar Garcia [phone] REASON FOR VISIT Patient presents today for a recall colonoscopy Encounters Encounter Location Date Provider Diagnosis [facility] [address] [place] [phone] 04/07/2024 Zafar Calderon Plan Of Treatment Next Appt Details Provider Name:Zafar Calderon , 12/03/2024 07:30:00 AM, [address] [place] [address] , [place], [place], [phone], Progress Notes * SUN HERNANDES JrDOB: (74 yo M)Acc No.[id number]:04/07/2024 Progress Notes Patient:?SUN HERNANDES Jr Provider:?Zafar Calderon MD :1950???Age:73 Y???Sex:Male Eliel e:04/07/2024 Address:[address] [place], [place] Pcp:Karan Sawant MD Subjective: * Chief Complaints: * ???1. Patient presents today for a recall colonoscopy. * Medical History:? Objective: * Vitals:? Assessment: Plan: * Treatment: * * The named appointment provid er may or may not be the originator of this progress note, and it is not deemed complete until electronically signed by the appointment provider. Sign off status: Pending * Provider:?Zafar Calderon MD Date:? 024 Generated for Anita sky/Jennifer/Jose R on:?11/11/2024 12:17 PM EDT
--- OUTSIDE RECORDS SUMMARY | 2024-11-11 12:17 | XMS_ITS | Patient Health Record ---
Author Organization [facility] Address [address] [place] [address] Care Team Providers Care Customer Technical Services Manager Name Role Phone Karan Sawant MD Primary Care Provider Zafar Garcia Unavailable [phone] Allergies No Known Allergies Reason For Referral No Information Medications Medication SIG (Take, Route, Frequency, Duration) Notes Start Date End Date Status Aspir-81 81 MG 1 tablet Orally Once [...] Gabapentin 300 MG Oral for 90 Active buPROPion HCl ER (SR) 150 MG 1 [...] Status Comme nts Influenza Unknown 10/23/2018 Refused Influenza Unknown 08/11/2024 Refused Social History Tobacco [...] No Points 0 Interpretation Negative Section Notes: Smoker; no alcohol Smoker 1 ppd; no alcohol Smoker 1 ppd; no alcohol Problems Problem Type SNOMED Code ICD Code Onset Dates Problem Status W/U Status Risk Notes Problem 122485866 Encounter for screening for malignant neoplasm of colon (Z12.11) Active confirmed Problem 047792730 Hx of adenomatous colonic polyps (Z86.010) Active confirmed Problem 705764761939294 Encounter for long-term (current) aspirin use (Z79.82) Active confirmed Problem Personal history of adenomatous and serrated colon polyps (Z86.0101) Active confirmed Vital Signs Temperature 97.1 degrees Fahrenheit 08/11/2024 Blood pressure diastolic 00 mm Hg 08/11/2024 Height 69 in 08/11/2024 Blood pressure systolic 000 mm Hg 08/11/2024 Weight 165 lbs 08/11/2024 BMI 24.36 kg/m2 08/11/2024 Encounters Encounter Location Date Provider Diagnosis [facility] [address] [place] [phone] 08/11/2024 Zafar Calderon Hx of adenomatous colonic [...] advised of his progress. Plan Of Treatment Future Test Test Name Order Date COLONOSCOPY 12/01/2012 COLONOSCOPY 10/23/2018 COLONOSCOPY 08/11/2024 Next Appt Details Provider Name:Zafar Jazmin Calderon , 12/03/2024 07:30:00 AM, [address] [place] [address] , [place], [place], [phone], Insurance Providers Payer Name Payer Address Payer Phone Subscriber Number Group Number Insured Name Patient Relationship to Insured Coverage Start Date Coverage End Date MEDICARE OF [employer] [address] [place] [id number] SUN HERNANDES Self - patient is the insured [employer] [address] [place] [address] [phone] [id number] SUN HERNANDES Self - patient is the insured Medical (General) History Medical History History ICD Code Colonoscopy 08-31-2001-tubular adenoma re moved Neg. colonoscopy in 05/2007 except for h yperplastic poyps Multiple sclerosis since age 25 NIDDM Denies CVA,Lung disease,renal disease Hyperlipidemia CA 2016- stent placed Colonoscopy 01/2013--- 2 small tubular ad enomas removed Colonoscopy 01/2019 1 tubular adenoma rem anila Surgical History Surgery Date(Month/Year) Vasetomy Tonsillectomy Hernia repair-inguinal
[2024-12-01 09:44] VITALS: BMI 24.4
--- NOTE | 2025-03-11 09:01 | HO.ANESPROP2 ---
HPI - Anesthesia Eval Consult details Narrative: 74yo M for Colonoscopy Follows [facility] cardiology for CAD with AL, s/p LAD stent 2014 Stable at 12/2024 office visit MS with gait issues Anesthesia Pre-Procedure Meds Is the patient on any of the following meds?: GLP1/DPP4 PMFSH Active Problems Active Problems: All Active Problems History of UTI (Acute) Microscopic hematuria (Acute) Lower extremity weakness (Acute) BPPV (benign paroxysmal positional vertigo) (Acute) Balance problem (Acute) Vertigo (Acute) Myocardial infarction (Acute 2016) HLD (hyperlipidemia) (Acute) Diabetes (Acute) Multiple sclerosis (Acute) Past Medical History Medical History CAD (coronary artery disease) Smoker Myocardial infarction (2016) HLD (hyperlipidemia) Diabetes Multiple sclerosis Family History Family History Mother No problems noted. Father No problems noted. Surgical History Surgical History Hx of inguinal hernia repair Hx of tonsillectomy Hx of vasectomy H/O heart artery stent Hx of colonoscopy (01/25/19) Social History Social History Housing: House Patient Tobacco Use Status: Current everyday Tobacco user Tobacco use type: Cigarette Cigarettes Per Day: 20 e-Cigarette/Vaping Use: Currently Using service: No Current occupational status: retired Cognitive needs: Yes (M.S) Hearing needs: No Vision needs: Yes (Rx glasses) Meds Allergies Allergy/AdvReac Type Severity Reaction Status Date / Time hay fever Allergy Severe sob Uncoded 03/17/25 10:02 Home Medications ?Medication ?Instructions ?Recorded ?Confirmed ?Last Taken ?Type aspirin 81 mg tablet,delayed 81 mg PO DAILY 12/01/24 03/11/25 Unknown History release atorvastatin 80 mg tablet 80 mg PO DAILY 12/01/24 03/11/25 Unknown History interferon beta-1a 30 mcg/0.5 mL 30 mcg IM QWEEK 12/01/24 12/01/24 Unknown History intramuscular syringe kit (Avonex) metformin 500 mg tablet,extended 1,000 mg PO BID 12/01/24 03/11/25 Unknown History release 24 hr metoprolol succinate 25 mg 25 mg PO DAILY 12/01/24 03/11/25 Unknown History tablet,extended release 24 hr interferon beta-1a 30 mcg/0.5 mL 30 mcg IM QWEEK 12/02/24 03/11/25 Unknown History intramuscular pen injector (Avonex) bupropion HCl 150 mg tablet,12 hr 150 mg PO BID 03/11/25 03/11/25 Unknown History sustained-release multivitamin 1 tab PO DAILY 03/17/25 Unknown History Exam Height,Weight and Vital Signs: Height 5 ft 9 in Weight 74.843 kg Pertinent Lab Results Pertinent Lab Results: Laboratory Tests 02/01/25 08:30 WBC 12.5 H Hgb 14.0 Hct 42.0 Plt Count 262 Sodium 140 Potassium 4.4 Chloride 107 Carbon Dioxide 24 BUN 19 H Creatinine 0.94 Assessment and Plan Assessment Anesthesia Assessment: Chart Reviewed
[2025-03-14 07:03] LABS: Glucose, Whole Blood 225 mg/dL (60-115)
[2025-03-14 07:06] VITALS: BP 122/60; PULSE 90; RESP 18; TEMP 35.9; O2SAT 99
[2025-03-14] MEDS: Lactated Ringers 1,000 ML 100 ML IVCONT (07:07)
--- NOTE | 2025-03-14 07:22 | HO.ANESPROP2 ---
Documented by User: Akhil Sesay CRNA 03/14/25 07:30 [facility] Active Problems Active Problems: All Active Problems (Updated 03/11/25 @ 10:40 by Genet Wang CNP) Lumbar radiculopathy (Acute) Left foot drop (Acute) History of UTI (Acute) Microscopic hematuria (Acute) Lower extremity weakness (Acute) BPPV (benign paroxysmal positional vertigo) (Acute) Balance problem (Acute) Vertigo (Acute) Myocardial infarction (Acute 2016) HLD (hyperlipidemia) (Acute) Diabetes (Acute) Multiple sclerosis (Acute) Past Medical History Medical History CAD (coronary artery disease) Smoker Myocardial infarction (2016) HLD (hyperlipidemia) Diabetes Multiple sclerosis Functional capacity: independent ambulation Family History Family History Mother No problems noted. Father No problems noted. Family history of problems with anesthesia: No Surgical History Surgical History Hx of inguinal hernia repair Hx of tonsillectomy Hx of vasectomy H/O heart artery stent Hx of colonoscopy (01/25/19) History of Problems with Anesthesia: No Social History Social History Housing: House Patient Tobacco Use Status: Current everyday Tobacco user Tobacco use type: Cigarette Cigarettes Per Day: 20 e-Cigarette/Vaping Use: Currently Using Use of substances other than those prescribed or required for medical reasons: No Advance Directives: No Advance Directives Information Provided: Yes service: No Current occupational status: retired Cognitive needs: Yes (M.S) Hearing needs: No Vision needs: Yes (Rx glasses) Travel History History of recent travel: No Recent Travel in [place] Within the Last 8 Weeks: No Recent Out of Country Travel Within the Last 8 Weeks: No Exposure or Possible Exposure to Illness During Travel: No Meds Allergies Allergy/AdvReac Type Severity Reaction Status Date / Time hay fever Allergy Unknown sob Uncoded 03/11/25 10:24 Active Medications: Current Medications Albuterol Sulfate (Albuterol Sulfate (0.083%) 2.5 Mg/3 Ml Vial.Neb) 2.5 mg INHALE ONCE PRN PRN Reason: Shortness of Breath/Wheezing Lactated Ringer's (Lr) 1,000 mls @ 100 mls/hr IVCONT .Q10H ABHISHEK Last Admin: 03/14/25 07:07 Dose: 100 mls/hr Sodium Biphosphate/Sodium Phosphate (Sodium Phosphate,[place]-Dibasic 133 Ml Enema) 133 ml FL ONCE PRN PRN Reason: Poor Colonoscopy Prep Results Home Medications ?Medication ?Instructions ?Recorded ?Confirmed ?Last Taken ?Type aspirin 81 mg tablet,delayed 81 mg PO DAILY 12/01/24 03/11/25 Unknown History release atorvastatin 80 mg tablet 80 mg PO DAILY 12/01/24 03/11/25 Unknown History interferon beta-1a 30 mcg/0.5 mL 30 mcg IM QWEEK 12/01/24 12/01/24 Unknown History intramuscular syringe kit (Avonex) lisinopril 2.5 mg tablet 2.5 mg PO DAILY 12/01/24 12/01/24 Unknown History metformin 500 mg tablet,extended 1,000 mg PO BID 12/01/24 03/11/25 Unknown History release 24 hr metoprolol succinate 25 mg 25 mg PO DAILY 12/01/24 03/11/25 Unknown History tablet,extended release 24 hr interferon beta-1a 30 mcg/0.5 mL 30 mcg IM QWEEK 12/02/24 03/11/25 Unknown History intramuscular pen injector (Avonex) sitagliptin phosphate 100 mg 100 mg PO DAILY 12/02/24 03/11/25 Unknown History tablet (Januvia) bupropion HCl 150 mg tablet,12 hr 150 mg PO BID 03/11/25 03/11/25 Unknown History sustained-release Exam Height,Weight and Vital Signs: Height 5 ft 9 in Weight 74.843 kg Last Vital Signs Temp 96.7 F L 03/14/25 07:06 Pulse 90 03/14/25 07:06 Resp 18 03/14/25 07:06 BP 122/60 03/14/25 07:06 Pulse Ox 99 03/14/25 07:06 O2 Del Method Room Air 03/14/25 07:06 Pertinent Lab Results Pertinent Lab Results: Laboratory Tests 03/14/25 06:59 POC Glucose 225 H Airway Mallampati Class: II TM Dist: >3cm Neck ROM: Full Loose/Missing/Broken Teeth: No Heart: RRR Lungs: CTA Assessment and Plan Final Anesthetic Review Family History of Problems with Anesthesia: No History of Problems with Anesthesia: No NPO: Yes ASA Class: III Final Preanesthetic Review: No Changes in Pt Med Stat, Meds/Allgs Chart Reviewed, Consent Obtained/Reviewed and Anes Risks/Benef Reviewed Patient Risk: Low Procedure Risk: Low Anesthetic Plan Anesthetic Plan: MAC: Disposition: Standard PACU Documented by User: Jennifer Son MD 03/14/25 08:28 PMFSH Past Medical History Medical History CAD (coronary artery disease) Smoker Myocardial infarction (2015) HLD (hyperlipidemia) Diabetes Multiple sclerosis Family History Family History Mother No problems noted. Father No problems noted. Surgical History Surgical History Hx of inguinal hernia repair Hx of tonsillectomy Hx of vasectomy H/O heart artery stent Hx of colonoscopy (01/25/19) Social History Social History Housing: House Patient Tobacco Use Status: Current everyday Tobacco user Tobacco use type: Cigarette Cigarettes Per Day: 20 e-Cigarette/Vaping Use: Currently Using Use of substances other than those prescribed or required for medical reasons: No Advance Directives: No Advance Directives Information Provided: Yes service: No Current occupational status: retired Cognitive needs: Yes (M.S) Hearing needs: No Vision needs: Yes (Rx glasses) Meds Allergies Allergy/AdvReac Type Severity Reaction Status Date / Time hay fever Allergy Unknown sob Uncoded 03/11/25 10:24 Home Medications ?Medication ?Instructions ?Recorded ?Confirmed ?Last Taken ?Type aspirin 81 mg tablet,delayed 81 mg PO DAILY 12/01/24 03/11/25 Unknown History release atorvastatin 80 mg tablet 80 mg PO DAILY 12/01/24 03/11/25 Unknown History interferon beta-1a 30 mcg/0.5 mL 30 mcg IM QWEEK 12/01/24 12/01/24 Unknown History intramuscular syringe kit (Avonex) lisinopril 2.5 mg tablet 2.5 mg PO DAILY 12/01/24 12/01/24 Unknown History metformin 500 mg tablet,extended 1,000 mg PO BID 12/01/24 03/11/25 Unknown History release 24 hr metoprolol succinate 25 mg 25 mg PO DAILY 12/01/24 03/11/25 Unknown History tablet,extended release 24 hr interferon beta-1a 30 mcg/0.5 mL 30 mcg IM QWEEK 12/02/24 03/11/25 Unknown History intramuscular pen injector (Avonex) sitagliptin phosphate 100 mg 100 mg PO DAILY 12/02/24 03/11/25 Unknown History tablet (Januvia) bupropion HCl 150 mg tablet,12 hr 150 mg PO BID 03/11/25 03/11/25 Unknown History sustained-release Assessment and Plan Assessment Anesthesia Assessment: Anesthesia Plan Discussed and Chart Reviewed Anesthetic Plan Anesthetic Plan: Agree w/ Assess. and Plan
[2025-03-14 08:25] VITALS: BP 97/71; PULSE 70; RESP 12; TEMP 36.1; O2SAT 97
[2025-03-14 08:33] VITALS: BP 108/68; PULSE 75; RESP 16; O2SAT 98
--- NOTE | 2025-03-14 08:33 | PM.OP ---
Brief Operative Note Date of Service: 03/14/25 Pre-op diagnosis: Screening Post-op diagnosis: other (Polyps) Procedure: Colonoscopy to the cecum and TI with hot snare polypectomy x 2 and placement of Resolution clips on each site. Surgeon: Zafar Calderon MD Anesthesia: MAC Was an Disc Pad Grinder used for this Procedure?: No Estimated blood loss (mL): 0 Pathology: other (A. Ascending colon polyp B. Polyp at 50cm) Condition: stable Disposition: PACU
[2025-03-14 08:45] VITALS: BP 119/69; PULSE 69; RESP 18; TEMP 36.4; O2SAT 99
--- NOTE | 2025-03-14 09:04 | OP_ITS ---
DATE OF SERVICE: 03/14/2025 SURGEON: Zafar Calderon MD INDICATIONS: The patient presents for evaluation of personal history of tubular adenomas of the colon and need for colorectal cancer screening. Full consent was obtained from him for this, including risks of bleeding and perforation. PREOPERATIVE DIAGNOSIS: POSTOPERATIVE DIAGNOSIS: PROCEDURE PERFORMED: Colonoscopy to cecum and terminal ileum with hot snare polypectomy x2 and placement of resolution clips. ESTIMATED BLOOD LOSS: COMPLICATIONS: ANESTHESIA: Medication used, monitored anesthesia care. ASSISTANTS: SPECIMENS: PREOPERATIVE DIAGNOSES: Colorectal cancer screening and personal history of tubular adenoma of the colon. POSTOPERATIVE DIAGNOSES: Colorectal cancer screening and personal history of tubular adenoma of the colon, colon polyps, diverticulosis, and internal hemorrhoids. DESCRIPTION OF PROCEDURE: The patient was placed in left lateral decubitus position. The digital rectal exam revealed no abnormalities. The Olympus video pediatric colonoscope was entered into the rectum and advanced easily to the cecum. Once in the cecum I did identify normal-appearing cecal pouch with appendiceal orifice and a normal-appearing ileocecal valve. The terminal ileum was cannulated and appeared normal. The scope was withdrawn back in the colon. The entire cecum and ileocecal valve appeared normal. The scope was slowly withdrawn assessing all mucosal surfaces carefully. Preparation was excellent. In the proximal ascending colon was an approximately 12 mm polyp, which was removed by hot snare polypectomy and recovered by suction. The polypectomy site appeared clean, without any sign of residual polyp nor bleeding. Two resolution clips were applied to the polypectomy site with good deployment and good hemostasis. At 50 cm was an approximately 8 mm polyp, which was removed by hot snare polypectomy and recovered by suction. The polypectomy site appeared clean, without any sign of residual polyp nor bleeding. A single resolution clip was applied to the polypectomy site with good deployment and good hemostasis. I did not visualize any other polyps, colitis, nor angiodysplasia. There was a mild amount of sigmoid diverticulosis. In the rectum, scope was retroflexed visualizing internal hemorrhoids, but no other pathology. The rectal mucosa appeared normal. The scope was straightened and withdrawn the patient. He tolerated the procedure well and was returned to recovery area in stable condition. IMPRESSION: 1. Colon polyps. 2. Diverticulosis. 3. Internal hemorrhoids. PLAN: The results of the pathology will be checked. Given these findings and his age, as well as his underlying multiple sclerosis, I do not thing he will need any further screening colonoscopies in the future. He was advised not to use any NSAIDs for 1 week. He was advised to resume his aspirin in 48 hours. He will otherwise see me on a p.r.n. basis. This has been discussed with the patient and his .. MD CORA [place]/PEMA / [id number] MTDD
== END 2025-03-14 09:13 | disposition home or self-care (01) ==
PROVIDERS: PCP Internal Medicine; Visit Provider Internal Medicine
PROC: 0DJD8ZZ Inspection of Lower Intestinal Tract, Via Natural or Artificial Opening Endoscopic (ICD-10-PCS; CPT 45378; principal; 2025-03-14 07:30)
DX: Z12.11 Encounter for screening for malignant neoplasm of colon (principal); Z86.0101 Personal history of adenomatous and serrated colon polyps; D12.2 Benign neoplasm of ascending colon; D12.5 Benign neoplasm of sigmoid colon; K57.30 Diverticulosis of large intestine without perforation or abscess without bleeding; K64.8 Other hemorrhoids; G35 Multiple sclerosis; E78.5 Hyperlipidemia, unspecified; E11.9 Type 2 diabetes mellitus without complications; Z79.82 Long term (current) use of aspirin; Z79.84 Long term (current) use of oral hypoglycemic drugs; Z79.899 Other long term (current) drug therapy; Z98.52 Vasectomy status; F12.10 Cannabis abuse, uncomplicated
CPT/HCPCS: 45385; 82947; 88305; J2003; J2704

== ENCOUNTER 2025-03-17 09:42 | Outpatient (AMB) | payer MEDICARE, OTHER, SELFPAY ==
--- OUTSIDE RECORDS SUMMARY | 2024-12-03 03:30 | XMS_ITS ---
Author Organization [facility] Address [address] [place] [address] Care Team Providers Care Plate Sensitizer Name Role Phone Jese (RETIRED) Karan CARTER Primary Care Provide Zafar Thomson [phone] REASON FOR VISIT screening, hx polyps Encounters Encounter Location Date Provider Diagnosis [facility] [place] [address], [place] [phone] 12/03/2024 Zafar Calderon Plan Of Treatment No Information Progress Notes * HERNANDESSUN CABALLERO JrDOB: (74 yo M)Acc No.[id number]:12/03/2024 COLON WITH MAC Patient: Shereen LANGFORDSUN Jr Provider: Elodia Calderon MD :1950 A ge:74 Y S ex:Male Date:12/03/2024 Address:[address] [facility] Pcp:Karan Sawant (RETIRED )MD Subjective: * Chief [...] 0 12/03/2024 Generated for Giai ng/Faxing/eTransmitting on: 03/17/2025 10:23 AM EDT
--- NOTE | 2025-03-17 09:45 | MHC.PC.OV ---
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 Accompanied by: Spouse Allergies hay fever Allergy (Severe, Uncoded 03/17/25 10:02) sob Tobacco use date assessed: 03/17/25 Fall risk assessment: No Falls in past year Last assessed Fall Risk: 03/17/25 Dental Screening Dental Screen Date: 03/17/25 Did you have a dental visit in the last 12 months?: Yes Did you have a dental problem in the last 6 months where you did not have access to dental care?: No HPI HPI Comments History of Present Illness Details 74 year old male with past medical history of diabetes, AAA, DDD lumbar spine, MS presenting for follow up Diabetes: On glipizide 5mg daily, metformin ER 1000mg twice daily, januvia 100mg. A1c 9.4 to 7.5%. Blood glucose is widely variable. No BG< 70. CV: Follows with Dr Snowden. aortic dilation. Had fall in October while in [place]. 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 Follows with neurology.. Colonoscopy 8.06/28 ROS CONSTITUTIONAL: Denies weight loss, fever and chills. HEENT: Denies changes in vision and hearing. RESPIRATORY: Denies SOB and cough. CV: Denies palpitations and CP GI: Denies abdominal pain, nausea, vomiting and diarrhea. : Denies dysuria and urinary frequency. MSK: Denies new myalgia and joint pain. SKIN: Denies rash and pruritus. NEUROLOGICAL: Denies headache PSYCHIATRIC: Denies recent changes in mood. PHYSICAL EXAM: GENERAL: Alert and oriented x 3. NAD EYES: EOMI. Anicteric. HENT: Moist mucous membranes. No scleral icterus. No cervical lymphadenopathy. LUNGS: Clear to auscultation bilaterally. CARDIOVASCULAR: Regular rate and rhythm. No murmur. No JVD. ABDOMEN: Soft, non-tender +bs EXTREMITIES: No edema. Non-tender. SKIN: No rashes or lesions. Warm. NEUROLOGIC: No focal neurological deficits. CN II-XII grossly intact PSYCHIATRIC: Cooperative. Appropriate mood and affect [facility] Medical History CAD (coronary artery disease) Smoker Myocardial infarction (2016) HLD (hyperlipidemia) Diabetes Multiple sclerosis Surgical History Hx of inguinal hernia repair Hx of tonsillectomy Hx of vasectomy H/O heart artery stent Hx of colonoscopy (01/25/19) Family History Mother No problems noted. Father No problems noted. Social History Housing: House Patient Tobacco Use Status: Current everyday Tobacco user Tobacco use type: Cigarette Cigarettes Per Day: 20 e-Cigarette/Vaping Use: Currently Using service: No Current occupational status: retired Cognitive needs: Yes (M.S) Hearing needs: No Vision needs: Yes (Rx glasses) Questionnaire PHQ-9 Over the last 2 weeks, how often have you been bothered by any of the following problems? 1. Little interest or pleasure in doing things: not at all 2. Feeling down, depressed, or hopeless: not at all 3. Trouble falling or staying asleep, or sleeping too much: not at all 4. Feeling tired or having little energy: not at all 5. Poor appetite or overeating: not at all 6. Feeling bad about yourself - or that you are a failure or have let yourself or your family down: not at all 7. Trouble concentrating on things, such as reading the newspaper or watching television: not at all 8. Moving or speaking so slowly that other people could have noticed. Or the opposite - being so fidgety or restless that you have been moving around a lot more than usual: not at all 9. Thoughts that you would be better off or of hurting yourself in some way: not at all Total score: 0 Source: Developed by Drs. Zafar Mccarty, Christy Rodriguez, Otis Mendez and colleagues, with an educational paxton from [email or web address]. Thrive Questionnaire Date Thrive assessed: 03/17/25 I am a: Patient Within the past 12 months, did the food you bought not last and you didn't have the money to get more?: Never true Within the past 12 months, did you worry whether your food would run out before you got money to buy more?: Never true Do you have trouble paying for medicines?: No Do you have trouble getting transportation to medical appointments?: No Do you have trouble paying your heating and electricity bill?: No Do you have trouble taking care of your child, family member or friend?: No Do you have trouble with day-to-day activities such as bathing, preparing meals, shopping, managing finances, etc.?: No Are you currently unemployed and looking for a job?: No Are you interested in more education?: No THRIVE Score: 0 AUDIT C Alcohol Use Questionnaire (AUDIT-C) 1. How often do you have a drink containing alcohol?: Never 3. How often do you have six or more drinks on one occasion?: Never Total Score: 0 ARMIN-7 AMB Questionnaire ARMIN-7 Date ARMIN - 7 assessed: 03/17/25 Feeling nervous, anxious, or on edge: 0 = Not at all Not being able to stop or control worryin = Not at all Worrying too much about different things: 0 = Not at all Trouble relaxin = Not at all Being so restless that it is hard to sit still: 0 = Not at all Becoming easily annoyed or irritable: 0 = Not at all Feeling afraid as if something awful might happen: 0 = Not at all Total ARMIN-7 score (0-4 normal; 5-9 mild; 10-14 moderate; 15-21 severe): 0 Source: Developed by Drs. Zafar Mccarty, Christy Rodriguez, Otis Mendez and colleagues, with an educational paxton from [email or web address]. Physical exam (Primary Care) Vital Signs: Last Vital Signs Temp 97.8 F 03/17/25 09:52 Pulse 83 03/17/25 09:52 BP 116/68 03/17/25 09:52 Pulse Ox 97 03/17/25 09:52 Oxygen Delivery Method Room Air 03/17/25 09:52 BMI result Body Mass Index 20.4 Tobacco/Smoking Status: Tobacco use Status Tobacco use date assessed 03/17/25 03/17/25 09:46 Patient Tobacco Use Status Current everyday Tobacco 03/17/25 09:46 Tobacco use type Cigarette 03/17/25 09:46 e-Cigarette/Vaping Use Currently Using 03/17/25 09:46 PHQ-9: PHQ-9 Score PHQ-9: Total score 0 03/21/25 13:25 Thrive Assessment: Date of Thrive Assessment Date Thrive assessed 03/17/25 03/17/25 09:46 Coding Level of Care Code Est Pt Level 4 (79635) Diagnoses Hyperlipidemia, unspecified hyperlipidemia type E78.5 Hyperlipidemia type: unspecified Type 2 diabetes mellitus with hyperglycemia, without long-term current use of insulin E11.65 Diabetes mellitus complication status: with hyperglycemia Diabetes mellitus rat exterminator insulin use: without rat exterminator use Diabetes mellitus type: type 2 Multiple sclerosis G35 Assessment & Plan Assessment & Plan (1) HLD (hyperlipidemia): Code(s): E78.5 - Hyperlipidemia, unspecified Category: Medical Qualifiers: Hyperlipidemia type: unspecified Qualified Code(s): E78.5 - Hyperlipidemia, unspecified (2) Diabetes: Code(s): E11.9 - Type 2 diabetes mellitus without complications Category: Medical Qualifiers: Diabetes mellitus complication status: with hyperglycemia Diabetes mellitus rat exterminator insulin use: without rat exterminator use Diabetes mellitus type: type 2 Qualified Code(s): E11.65 - Type 2 diabetes mellitus with hyperglycemia (3) Multiple sclerosis: Comment: since age 25 Code(s): G35 - Multiple sclerosis Category: Medical Plan 74 year old male for follow up Diabetes-stop januvia,start actos.There is too much hyperglycemia in readings.Potentially get off glipizide if more effective MS-stable on current medication Medications: New pioglitazone 30 mg PO DAILY 90 tabs 3RF
[2025-03-17 09:52] VITALS: BP 116/68; PULSE 83; TEMP 36.6; O2SAT 97; BMI 20.4
--- OUTSIDE RECORDS SUMMARY | 2025-03-17 10:23 | XMS_ITS | Continuity of Care Document ---
Author Name [facility] Organization [facility] Care Team Providers Care Liability Claims Examiner Name Role Phone [facility] Unavailable Unavailable Medications Combined list of outpatient medications from Department of Defense and Veterans Affairs facilities.Medications provided include 1) outpatient medications from the last 15 months, and 2) patient-reported medications. Medication Details Route Status Patient Instructions Prescription Expires Prescription Number Last Dispense Date Ordering Provider Order Date Order Qty Source GABAPENTIN (GABAPENTIN ), 300 MG, CAPSULE, ORAL, ACTAVIS PHARMA,, 500 ea. BOTTLE Active [id number] 2023 90 Pharmac y Data Transac tion Service Facilit y GABAPENTIN (gabapentin ), 300 MG, CAPSULE, ORAL, XLCARE PHARMACE, 270 ea. BOTTLE Active [id number] 4 2023 270 Pharmac y Data Transac tion Service Facilit y GLIPIZIDE ER (glipizide) , 10 MG, TAB ER 24, ORAL, AUROBINDO PHARM, 100 ea. BOTTLE Active [id number] 2023 180 Pharmac y Data Transac tion Service Facilit y Immunizations Combined list of available immunizations from the Department of Defense and Veterans Affairs facilities. Immunization Series Date Given Administered By Site Reaction Lot Number CVX Code Drug Locomotive Engineer Electric Status Comments Source COVID-19, mRNA, LNP-S, PF, 30 mcg/0.3 mL dose, linda-sucrose 2021 Pr[employer] [place] (PFR) Not Given COVID-19, mRNA, LNP-S, PF, 30 mcg/0.3 mL dose, linda-sucr ose [facility] Social History Combined list of available smoking, tobacco, and other social history from Department of Defense and Veterans Affairs facilities. Social History Type Response Date Comment Sour e This section is an empty social history section. [facility]
== END 2025-03-17 11:03 | disposition home or self-care (01) ==
LOC: HO.HMCHD 09:42
PROVIDERS: PCP Internal Medicine; Visit Provider Internal Medicine
DX: E78.5 Hyperlipidemia, unspecified (principal); E11.65 Type 2 diabetes mellitus with hyperglycemia; G35 Multiple sclerosis

== ENCOUNTER → 2025-03-17 09:42 | Outpatient (BNVA) | payer MEDICARE, OTHER, SELFPAY | PROVIDERS: PCP Internal Medicine; Visit Provider Internal Medicine | DX: E78.5 Hyperlipidemia, unspecified (principal); E11.65 Type 2 diabetes mellitus with hyperglycemia; G35 Multiple sclerosis; Z79.84 Long term (current) use of oral hypoglycemic drugs; Z79.899 Other long term (current) drug therapy; Z13.39 Encounter for screening examination for other mental health and behavioral disorders; Z13.30 Encounter for screening examination for mental health and behavioral disorders, unspecified | CPT/HCPCS: 96127; 99212 ==

== ENCOUNTER 2025-04-15 10:20 | Outpatient (AMB) | payer MEDICARE, OTHER, SELFPAY ==
--- OUTSIDE RECORDS SUMMARY | 2024-04-07 09:40 | XMS_ITS ---
Author Organization [facility] Address [address] [place] [address] Care Team Providers Care Last Model Department Supervisor Name Role Phone Jese (RETIRED) Karan CARTER Primary Care Provide Zafar Thomson [phone] REASON FOR VISIT Patient presents today for a recall colonoscopy Encounters Encounter Location Date Provider Diagnosis [facility] [address] [place] [address] 04/07/2024 Zafar Calderon Plan Of Treatment No Information Progress Notes * GRETA SUN Carpenter JrDOB: (74 yo M)Acc No.[id number]:04/07/2024 Progress Notes Patient: SUN SALDANA Pauline Granger Provider: Elodia Calderon MD :1950 A ge:73 Y S ex:Male Date:04/07/2024 Address[place] [place] [place] Pcp:Karan Sawant (RETIRED )MD Subjective: * Chief [...] 0 04/07/2024 Generated for Printi ng/Faxing/eTransmitting on: 04/15/2025 11:48 AM EDT
--- OUTSIDE RECORDS SUMMARY | 2024-12-03 03:30 | XMS_ITS ---
Author Organization [facility] Address [address] [place] [address] Care Team Providers Care Elementary Art Teacher Name Role Phone Jsee (RETIRED) Karan CARTER Primary Care Provide Zafar Thomson [phone] REASON FOR VISIT screening, hx polyps Encounters Encounter Location Date Provider Diagnosis [facility] Outpatient [address] [place], [place] [phone] 12/03/2024 Zafar Calderon Plan Of Treatment No Information Progress Notes * HERNANDESSUN SERVIN JrDOB: (74 yo M)Acc No.[id number]:12/03/2024 COLON WITH MAC Patient: Shereen LANGFORDSUN Jr Provider: Elodia Calderon MD :1950 A ge:74 Y S ex:Male Date:12/03/2024 Address:[address] [facility] Pcp:Karan Sawant (RETIRED )MD Subjective: * Chief Complaints: * 1 . Screening, hx polyps. * Medical History: Objective: * Vitals: Assessment: Plan: * Treatment: * * The named appointment provid er may or may not be the originator of this progress note, and it is not deemed complete until electronically signed by the appointment provider. Sign off status: Pending * Provider: Elodia Calderon MD Date: 0 12/03/2024 Generated for Printi ng/Faxing/eTransmitting on: 0 04/15/2025 11:49 AM EDT
--- OUTSIDE RECORDS SUMMARY | 2025-03-14 03:30 | XMS_ITS ---
Author Organization [facility] Address [address] [place] [address] Care Team Providers Care Ship Rigger Apprentice Name Role Phone Jese (RETIRED) Karan CARTER Primary Care Provide Zaafr Thomson [phone] REASON FOR VISIT colon screening/ hx of polyps Encounters Encounter Location Date Provider Diagnosis [facility] [address] [place] [phone] 03/14/2025 Zafar Calderon Plan Of Treatment No Information Progress Notes * SUN HERNANDES JrDOB: (74 yo M)Acc No.[id number]:03/14/2025 COLON WITH MAC Patient: Shereen LANGFORDSUN Jr Provider: Elodia Calderon MD :1950 A ge:74 Y S ex:Male Date:03/14/2025 [facility] [facility] Pcp:Karan Sawant (RETIRED )MD Subjective: * Chief Complaints: * 1 . Colon screening/ hx of polyps. * Medical History: Objective: * Vitals: Assessment: Plan: * Treatment: * * The named appointment provid er may or may not be the originator of this progress note, and it is not deemed complete until electronically signed by the appointment provider. Sign off status: Pending * Provider: Elodia Calderon MD Date: 0 03/14/2025 Generated for Printi ng/Faxing/eTransmitting on: 0 04/15/2025 11:49 AM EDT
--- NOTE | 2025-04-15 10:27 | MHC.PC.OV ---
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 Accompanied by , Emerald. Diabetes: On glipizide 5mg daily, metformin ER 1000mg twice daily, januvia 100mg. A1c 9.4 to 7.5%. Blood glucose is widely variable. No BG< 70. CV: Follows with Dr Snowden. aortic dilation. Had fall in October while in [place]. 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 Follows with neurology.. Colonoscopy 8.06/28 Requesting evaluation for VA disability due to MS history. 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 He was diagnosed with MS in 1975 and started in the [employer] in 1969. He does follow with Dr. Scott in Neurology. He was diagnosed when he developed left-sided numbness. Diagnosis was confirmed at [facility]. He has been on multiple medications including ACTH and multiple courses of prednisone. He is now on Avonex and has been stable since 1998. Continues following with Neurology. Continues to experience bilateral lower extremity weakness. He does occasionally require the use of a scooter/walker/cane. He also experiences sleep disturbances including insomnia, hypersomnolence attacks, and persistent daytime hypersomnolence. ROS CONSTITUTIONAL: Denies weight loss, fever and chills. HEENT: Denies changes in vision and hearing. RESPIRATORY: Denies SOB and cough. CV: Denies palpitations and CP GI: Denies abdominal pain, nausea, vomiting and diarrhea. : Denies dysuria and urinary frequency. MSK: Denies new myalgia and joint pain. SKIN: Denies rash and pruritus. NEUROLOGICAL: Denies headache. see hpi PSYCHIATRIC: Denies recent changes in mood. PHYSICAL EXAM: GENERAL: Alert and oriented x 3. NAD EYES: EOMI. Anicteric. HENT: Moist mucous membranes. No scleral icterus. No cervical lymphadenopathy. LUNGS: Clear to auscultation bilaterally. CARDIOVASCULAR: Regular rate and rhythm. No murmur. No JVD. ABDOMEN: Soft, non-tender +bs EXTREMITIES: No edema. Non-tender. SKIN: No rashes or lesions. Warm. NEUROLOGIC: Alert and oriented x.4 CN II-XII grossly intact 4/5 strength rle, 5/5 lle including hip, knee, ankle 5/5 strength bue including shoulder, elbow, wrist 5/5 record center coordinator strength 5/5 knee extension 5/5 ankle flexion/dorsiflexion Sensation intact PSYCHIATRIC: Cooperative. Appropriate mood and affect [facility] Medical History CAD (coronary artery disease) Smoker Myocardial infarction (2015) HLD (hyperlipidemia) Diabetes Multiple sclerosis Surgical History Hx of inguinal hernia repair Hx of tonsillectomy Hx of vasectomy H/O heart artery stent Hx of colonoscopy (01/25/19) Family History Mother No problems noted. Father No problems noted. Social History Housing: House Patient Tobacco Use Status: Current everyday Tobacco user Tobacco use type: Cigarette Cigarettes Per Day: 20 e-Cigarette/Vaping Use: Currently Using service: No Current occupational status: retired Cognitive needs: Yes (M.S) Hearing needs: No Vision needs: Yes (Rx glasses) Questionnaire Thrive Questionnaire Date Thrive assessed: 03/17/25 ARMIN-7 AMB Questionnaire ARMIN-7 Date ARMIN - 7 assessed: 03/17/25 Source: Developed by Drs. Zafar Mccarty, Christy Rodriguez, Otis Mendez and colleagues, with an educational paxton from [employer] Physical exam (Primary Care) Vital Signs: Last Vital Signs Temp 97.2 F 04/15/25 10:32 Pulse 78 04/15/25 10:32 Resp 16 04/15/25 10:32 BP 100/56 L 04/15/25 10:32 Pulse Ox 95 04/15/25 10:32 Oxygen Delivery Method Room Air 04/15/25 10:32 BMI result Body Mass Index 18.7 Tobacco/Smoking Status: Tobacco use Status Tobacco use date assessed 03/17/25 04/15/25 10:30 Patient Tobacco Use Status Current everyday Tobacco 04/15/25 10:30 Tobacco use type Cigarette 04/15/25 10:30 e-Cigarette/Vaping Use Currently Using 04/15/25 10:30 Thrive Assessment: Date of Thrive Assessment Date Thrive assessed 03/17/25 04/15/25 10:30 Coding Level of Care Code Est Pt Level 4 (59869) Complex EM visit Add On G2211 Diagnoses Multiple sclerosis G35 Vertigo R42 Hyperlipidemia, unspecified hyperlipidemia type E78.5 Hyperlipidemia type: unspecified Type 2 diabetes mellitus with hyperglycemia, without long-term current use of insulin E11.65 Diabetes mellitus type: type 2 Diabetes mellitus continuous churn buttermaker insulin use: without skilled nursing use Diabetes mellitus complication status: with hyperglycemia Assessment & Plan Assessment & Plan (1) Multiple sclerosis: Comment: since age 25 Code(s): G35 - Multiple sclerosis Category: Medical Plan: Disability paperwork reviewed and completed. Continue following with Neurology. Continue with assistive devices given ongoing bilateral lower extremity weakness and gait disorder. Continue Avonex (2) Vertigo: Code(s): R42 - Dizziness and giddiness Category: Medical Plan: Continue use of assistive devices to prevent falls. (3) HLD (hyperlipidemia): Code(s): E78.5 - Hyperlipidemia, unspecified Category: Medical Qualifiers: Hyperlipidemia type: unspecified Qualified Code(s): E78.5 - Hyperlipidemia, unspecified Plan: Lipid panel ordered. Continue atorvastatin (4) Diabetes: Code(s): E11.9 - Type 2 diabetes mellitus without complications Category: Medical Qualifiers: Diabetes mellitus type: type 2 Diabetes mellitus continuous churn buttermaker insulin use: without skilled nursing use Diabetes mellitus complication status: with hyperglycemia Qualified Code(s): E11.65 - Type 2 diabetes mellitus with hyperglycemia Plan: Raising any controlled given age Plan Follow-up in the office in 6 months with labs to be completed prior to visit Orders: Orders Basic Metabolic Panel 3 Months E11.65 - Type 2 diabetes mellitus with hyperglycemia, E78.5 - Hyperlipidemia, unspecified Hemoglobin A1c 3 Months E11.65 - Type 2 diabetes mellitus with hyperglycemia, E78.5 - Hyperlipidemia, unspecified Medications: Refilled tamsulosin 0.4 mg PO BEDTIME 90 caps 1RF gabapentin 300 mg PO TID 270 caps 1RF
[2025-04-15 10:32] VITALS: BP 100/56; PULSE 78; RESP 16; TEMP 36.2; O2SAT 95; BMI 18.7
--- OUTSIDE RECORDS SUMMARY | 2025-04-15 11:49 | XMS_ITS | Patient Health Record ---
Author Organization [facility] Address [address] [place] [address] Care Team Providers Care Weight Reduction Specialist Name Role Phone Jese (RETIRED) Karan CARTER Primary Care Provide r Unavailable Yumiko Zafar Unavailable [phone] Allergies No Known Allergies Results Component Value Reference Range Notes Glucose, Whole Blood Reviewed date:03/15/2025 06:36:11 PM Interpretation: Performing Lab:[facility], [address] [place] [id number] Notes/Report: Glucose, Whole Blood 225 60-115 mg/dL METER # : [id number] Pathology (Not yet reviewed by provider) Interpretation: Performing Lab:[address] [phone] Notes/Report: Reason For Referral No Information Medications Medication [...] Problem Status W/U Status Risk Notes Problem [id number] Encounter for screening for malignant neoplasm of colon (Z12.11) Active confirmed Problem 308875968 Hx of adenomatous colonic polyps (Z86.010) Active confirmed Problem [id number] Encounter for long-term (current) aspirin use (Z79.82) Active confirmed Problem Personal history of adenomatous and serrated colon polyps (Z86.0101) Active confirmed Vital Signs Temperature 97.1 degrees Fahrenheit 08/11/2024 Blood pressure diastolic 00 mm Hg 08/11/2024 Height 69 in 08/11/2024 Blood pressure systolic 000 mm Hg 08/11/2024 Weight 165 lbs 08/11/2024 BMI 24.36 kg/m2 08/11/2024 Encounters Encounter Location Date Provider Diagnosis [facility] [address] [place], [place] [id number] 03/14/2025 Zafar Calderon [facility] [address] [facility] [address] [place] [id number] 08/11/2024 Zafar Calderon Hx of adenomatous colonic polyps Z86.010 ; Encounter for long-term (current) aspirin use Z79.82 and Encounter for screening for malignant neoplasm of colon Z12.11 [facility] [address] [place] [id number] 12/01/2024 Zafar Calderon Assessments Encounter Date Diagnosis [...] advised of his progress. Plan Of Treatment Pending Test Test Name Order Date Pathology 03/14/2025 Future Test Test Name Order Date COLONOSCOPY 12/01/2012 COLONOSCOPY 10/23/2018 COLONOSCOPY 08/11/2024 Insurance Providers Payer Name Payer Address Payer Phone Subscriber Number Group Number Insured Name Patient Relationship to Insured Coverage Start Date Coverage End Date MEDICARE OF [facility] [address] [place] [id number] SUN HERNANDES Self - patient is the insured [employer] [address] [place] [address] [phone] [id number] SUN HERNANDES Self - patient is the insured Medical (General) History Medical History History ICD Code Colonoscopy 08-31-2001-tubular adenoma re moved Neg. colonoscopy in 05/2007 except for h yperplastic poyps Multiple sclerosis since age 25 NIDDM Denies CVA,Lung disease,renal disease Hyperlipidemia [place] 2016-1 stent placed Colonoscopy 01/2013--- 2 small tubular ad enomas removed Colonoscopy 01/2019 1 tubular adenoma rem anila Surgical History Surgery Date(Month/Year) Vasetomy Tonsillectomy Hernia repair-inguinal
== END 2025-04-15 12:01 | disposition home or self-care (01) ==
LOC: HO.HMCHD 10:21
PROVIDERS: PCP Internal Medicine; Visit Provider Physician Assistant
DX: G35 Multiple sclerosis (principal); R42 Dizziness and giddiness; E78.5 Hyperlipidemia, unspecified; E11.65 Type 2 diabetes mellitus with hyperglycemia

== ENCOUNTER → 2025-04-15 10:20 | Outpatient (BNVA) | payer MEDICARE, OTHER, SELFPAY | PROVIDERS: PCP Internal Medicine; Visit Provider Physician Assistant | DX: G35 Multiple sclerosis (principal); R42 Dizziness and giddiness; E78.5 Hyperlipidemia, unspecified; E11.65 Type 2 diabetes mellitus with hyperglycemia | CPT/HCPCS: 99212 ==

== ENCOUNTER 2025-04-19 09:14 | Outpatient (AMB) | payer MEDICARE, OTHER, SELFPAY ==
--- OUTSIDE RECORDS SUMMARY | 2024-04-07 09:40 | XMS_ITS ---
Author Organization [facility] Address [address] [place] [address] Care Team Providers Care Mc Kay Stitcher Name Role Phone Jese (RETIRED) Karan CARTER Primary Care Provide Zafar Thomson [phone] REASON FOR VISIT Patient presents today for a recall colonoscopy Encounters Encounter Location Date Provider Diagnosis [facility] [address] [place] [address] 04/07/2024 Zafar Calderon Plan Of Treatment No Information Progress Notes * GRETA SUN Carpenter JrDOB: (74 yo M)Acc No.[id number]:04/07/2024 Progress Notes Patient: SUN SALDANA Pauline Granger Provider: Elodia Calderon MD :1950 A ge:73 Y S ex:Male Date:04/07/2024 [address] [place] [place] Pcp:Karan Sawant (RETIRED )MD Subjective: * Chief Complaints: * 1 . Patient presents today for a recall colonoscopy. * Medical History: Objective: * Vitals: Assessment: Plan: * Treatment: * * The named appointment provid er may or may not be the originator of this progress note, and it is not deemed complete until electronically signed by the appointment provider. Sign off status: Pending * Provider: Elodia Calderon MD Date: 0 04/07/2024 Generated for Printi ng/Faxing/eTransmitting on: 04/19/2025 11:37 AM EDT
--- OUTSIDE RECORDS SUMMARY | 2024-12-03 03:30 | XMS_ITS ---
Author Organization [facility] Address [address] [place] [address] Care Team Providers Care Pet Sitting Name Role Phone Jese (RETIRED) Karan CARTER Primary Care Provide Zafar Thomson [phone] REASON FOR VISIT screening, hx polyps Encounters Encounter Location Date Provider Diagnosis [facility] Outpatient [address] [place], [place] [phone] 12/03/2024 Zafar Calderon Plan Of Treatment No Information Progress Notes * HERNANDESSUN CABALLERO JrDOB: (74 yo M)Acc No.[id number]:12/03/2024 COLON WITH MAC Patient: Shereen LANGFORDSUN Jr Provider: Elodia Calderon MD :1950 A ge:74 Y S ex:Male Date:12/03/2024 Address:[address] [facility] Pcp:Karan Sawant (RETIRED )MD Subjective: * Chief [...] 12/03/2024 Generated for Printi ng/Faxing/eTransmitting on: 0 04/19/2025 11:37 AM EDT
--- OUTSIDE RECORDS SUMMARY | 2025-03-14 03:30 | XMS_ITS ---
Author Organization [facility] Address [address] [place] [address] Care Team Providers Care Tsa Screener Name Role Phone Jese (RETIRED) Karan CARTER Primary Care Provide Zafar Thomson [phone] REASON FOR VISIT colon screening/ hx of polyps Encounters Encounter Location Date Provider Diagnosis [facility] [address] [place], [place] [phone] 03/14/2025 Zafar Calderon Plan Of Treatment No Information Progress Notes * SUN HERNANDES JrDOB: (74 yo M)Acc No.[id number]:03/14/2025 COLON WITH MAC Patient: Shereen LANGFORDSUN Jr Provider: Elodia Calderon MD :1950 A ge:74 Y S ex:Male Date:03/14/2025 [facility] [facility] Pcp:Karan Sawant (RETIRED )MD Subjective: * Chief [...] 03/14/2025 Generated for Printi ng/Faxing/eTransmitting on: 0 04/19/2025 11:37 AM EDT
--- NOTE | 2025-04-19 09:21 | A.OFFVIS_ITS ---
Intake Visit Reasons: microscopic hematuria/hx of UTI Intake Note: patient presents today for: new pt micro hematuria urology medications: tamsulosin blood thinners: none Staff Midwife Required: No Accompanied by: Spouse Allergies hay fever Allergy (Severe, Uncoded 04/20/25 09:32) sob HPI Comments Details: Prince is a pleasant male. He is seen for the following urologic conditions - microscopic hematuria Not seen on UA today Had been seen previously Does have prior history UTI Prior history smoking Background diabetic with multiple sclerosis Will check cytology 12 month follow-up UA PFS Medical History CAD (coronary artery disease) Smoker Myocardial infarction (2016) HLD (hyperlipidemia) Diabetes Multiple sclerosis Surgical History Hx of inguinal hernia repair Hx of tonsillectomy Hx of vasectomy H/O heart artery stent Hx of colonoscopy (01/25/19) Family History Mother No problems noted. Father No problems noted. Social History Housing: House Patient Tobacco Use Status: Current everyday Tobacco user Tobacco use type: Cigarette Cigarettes Per Day: 20 e-Cigarette/Vaping Use: Currently Using service: No Current occupational status: retired Cognitive needs: Yes (M.S) Hearing needs: No Vision needs: Yes (Rx glasses) Review of Systems Const Denies chills and Denies fever(s) Card Reports no additional complaints and Denies syncope Resp Denies cough GI Denies abdominal pain and Denies heartburn Reports as per HPI and Denies change in libido Neuro Denies syncope Psych Denies change in libido Endo Denies change in libido Physical Exam Const General: cooperative, healthy appearing, comfortable and no acute distress Orientation/consciousness: patient oriented x3 HEENT Face and sinus: Yes normal facial exam Mouth: moist mucous membranes Neck Neck: Yes normal visual inspection, Yes full ROM and Yes trachea midline Chest Chest palpation & inspection: normal inspection of the chest Resp Effort & Inspection: normal respiratory effort, able to speak in complete sentences and no respiratory distress GI Inspection: Yes normal to inspection Back/Spine/Pelvis Cervical Spine: normal cervical lordosis Thoracic/Lumbar Spine: thoracic and lumbar spine normal to inspection Skin General skin exam: no rashes or lesions noted Neuro General: patient oriented x3, gait normal, tone normal and moves all extremities Extrem General: Yes normal to inspection and Yes capillary refill normal Results AMB Urinalysis, Automated 2 UA Leukoctes 0 Tisha/uL Last Edit by ESE Rogers on 04/19/25 16:04 UA Nitrite Last Edit by ESE Rogers on 04/19/25 16:04 UA Urobilinogen 0.2 mg/dL Last Edit by ESE Rogers on 04/19/25 16:0 4 UA Protein 1 mg/dL Last Edit by ESE Rogers on 04/19/25 16:04 UA pH 5.5 Last Edit by ESE Rogers on 04/19/25 16:04 UA Blood 200 Hu/uL Last Edit by ESE Rogers on 04/19/25 16:04 UA Specific [place] 1.030 Last Edit by ESE Rogers on 04/19/25 16: 04 UA Ketone Last Edit by ESE Rogers on 04/19/25 16:04 UA Bilirubin 0 mg/dL Last Edit by ESE Rogers on 04/19/25 16:04 UA Glucose 30 mg/dL Last Edit by ESE Rogers on 04/19/25 16:04 Results Reviewed Results Reviewed: Laboratory Last Values Urine pH (Auto) 5.5 04/19/25 16:03 Specific [place] (Auto) 1.030 04/19/25 16:03 Urine Protein (Auto) 1 mg/dL 04/19/25 16:03 Glucose (UA)(Auto) 30 mg/dL 04/19/25 16:03 Urine Blood (Auto) 200 Hu/uL 04/19/25 16:03 Urine Bilirubin (Auto) 0 mg/dL 04/19/25 16:03 Urine Urobilinogen (Auto) 0.2 mg/dL 04/19/25 16:03 Leukocyte Esterase (Auto) 0 Tisha/uL 04/19/25 16:03 Assessment & Plan Assessment & Plan (1) Microscopic hematuria: Code(s): R31.29 - Other microscopic hematuria Category: Medical (2) History of UTI: Code(s): Z87.440 - Personal history of urinary (tract) infections Category: Medical Plan 12 month follow-up repeat UA Orders: Orders Urine Cytology 04/20/25 N39.0 - Urinary tract infection, site not specified AMB Urinalysis Automated 04/19/25 Z13.9 - Encounter for screening, unspecified Patient Instructions: This note is constructed using voice recognition software. While every effort has been made to ensure accuracy hand filer balance wheel errors may have been included. Imaging studies, laboratory and physical exam results were discussed and reviewed in detail. No major barriers to patient understanding were identified. An opportunity to ask questions regarding the treatment plan was provided. All questions were answered. The patient expressed understanding and agreement with the above treatment plan. The patient is aware they should contact our office by phone for worsening of their current condition or the appearance of new urologic symptoms. Compliance is encouraged with any medications and followup testing that is ordered. It is a privilege to participate in the urologic care of your patient. If you have any questions or concerns regarding treatment for the above conditions, or other urologic issues, please do not hesitate to contact me. The office telephone contact is [phone]. Sincerely, Dr García Carter MD, [facility] - Urology Compassionate Specialist Care for the Genitourinary System Coding Level of Care Code New Pt Level 3 (89719) Diagnoses Microscopic hematuria R31.29 History of UTI Z87.440
--- OUTSIDE RECORDS SUMMARY | 2025-04-19 11:38 | XMS_ITS | Patient Health Record ---
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 Role Phone Jese (RETIRED) Karan CARTER Primary Care Provide r Unavailable CalderonZafar Unavailable [phone] Allergies No Known Allergies Results Component Value Reference Range Notes Glucose, Whole Blood Reviewed date:03/15/2025 06:36:11 PM Interpretation: Performing Lab:[facility], [address] [place] [id number] Notes/Report: Glucose, Whole Blood 225 60-115 mg/dL METER # : [id number] Pathology (Not yet reviewed by provider) Interpretation: Performing Lab:[address] [address] Notes/Report: Reason For Referral No Information Medications [...] Problem Status W/U Status Risk Notes Problem [id number] Encounter for screening for malignant neoplasm of colon (Z12.11) Active confirmed Problem 213692734 Hx of adenomatous colonic polyps (Z86.010) Active confirmed Problem 124570941786155 Encounter for long-term (current) aspirin use (Z79.82) Active confirmed Problem Personal history of adenomatous and serrated colon polyps (Z86.0101) Active confirmed Vital Signs Temperature 97.1 degrees Fahrenheit 08/11/2024 Blood pressure diastolic 00 mm Hg 08/11/2024 Height 69 in 08/11/2024 Blood pressure systolic 000 mm Hg 08/11/2024 Weight 165 lbs 08/11/2024 BMI 24.36 kg/m2 08/11/2024 Encounters Encounter Location Date Provider Diagnosis [facility] [place] [address] [place], [place] [id number] 03/14/2025 Zafar Calderon [facility] [address] [facility] [address] [place] [phone] 08/11/2024 Zafar Calderon Hx of adenomatous colonic polyps Z86.010 ; Encounter for long-term (current) aspirin use Z79.82 and Encounter for screening for malignant neoplasm of colon Z12.11 [facility] [address] [place] [phone] 12/01/2024 Zafar Calderon Assessments Encounter Date Diagnosis [...] Start Date Coverage End Date MEDICARE OF [facility] [address] [place] [id number] [id number] SUN HERNANDES Self - patient is the insured [employer] [address] [place] [address] [id number] SUN HERNANDES Self - patient is the insured Medical (General) History Medical History History ICD Code Colonoscopy 08-31-2001-tubular adenoma re moved Neg. colonoscopy in 05/2007 except for h yperplastic poyps Multiple sclerosis since age 25 NIDDM Denies CVA,Lung disease,renal disease Hyperlipidemia [place] 2016-1 stent placed Colonoscopy 01/2013--- 2 small tubular ad enomas removed Colonoscopy 01/2019 1 tubular adenoma rem anila Surgical History Surgery Date(Month/Year) Vasetomy Tonsillectomy Hernia repair-inguinal
== END 2025-04-19 10:00 | disposition home or self-care (01) ==
LOC: HO.HUSH 09:15
PROVIDERS: Visit Provider Urology
DX: Z13.9 Encounter for screening, unspecified (principal)

== ENCOUNTER → 2025-04-19 09:14 | Outpatient (BNVA) | payer MEDICARE, OTHER, SELFPAY | PROVIDERS: Visit Provider Urology | DX: R31.29 Other microscopic hematuria (principal); Z87.440 Personal history of urinary (tract) infections; N39.0 Urinary tract infection, site not specified | CPT/HCPCS: 81003; 99202 ==

== ENCOUNTER 2025-04-20 09:14 | Outpatient (AMB) | payer MEDICARE, OTHER, SELFPAY ==
--- OUTSIDE RECORDS SUMMARY | 2024-04-07 09:40 | XMS_ITS ---
Author Organization [facility] Address [address] [place] [address] Care Team Providers Care Drain Tile Machine Operator Name Role Phone Jese (RETIRED) Karan CARTER Primary Care Provide Zafar Thomson [phone] REASON FOR VISIT Patient presents today for a recall colonoscopy Encounters Encounter Location Date Provider Diagnosis [facility] [address] [place] [address] 04/07/2024 Zafar Calderon Plan Of Treatment No Information Progress Notes * GRETA SUN Carpenter JrDOB: (74 yo M)Acc No.[id number]:04/07/2024 Progress Notes Patient: SUN SALDANA Pauline Granger Provider: lEodia Calderon MD :1950 A ge:73 Y S ex:Male Date:04/07/2024 Address[address] [place] Pcp:Karan Sawant (RETIRED )MD Subjective: * Chief [...] 0 04/07/2024 Generated for Printi ng/Faxing/eTransmitting on: 0 04/20/2025 10:52 AM EDT
--- OUTSIDE RECORDS SUMMARY | 2024-12-03 03:30 | XMS_ITS ---
Author Organization [facility] Address [address] [place] [address] Care Team Providers Care Wheat Combine Driver Name Role Phone Jese (RETIRED) Karan CARTER Primary Care Provide Zafar Thomson [phone] REASON FOR VISIT screening, hx polyps Encounters Encounter Location Date Provider Diagnosis [facility] [place] [address] [place], [place] [phone] 12/03/2024 Zafar Calderon Plan Of Treatment No Information Progress Notes * HERNANDESSUN CABALLERO JrDOB: (74 yo M)Acc No.[id number]:12/03/2024 COLON WITH MAC Patient: Shereen LANGFORDSUN Jr Provider: Elodia Calderon MD :1950 A ge:74 Y S ex:Male Date:12/03/2024 Address:[address] [facility] Pcp:Karan Sawant (RETIRED )MD Subjective: * Chief [...] Calderon MD Date: 0 12/03/2024 Generated for Giai ng/Faxing/eTransmitting on: 0 04/20/2025 10:53 AM EDT
--- OUTSIDE RECORDS SUMMARY | 2025-03-14 03:30 | XMS_ITS ---
Author Organization [facility] Address [address] [place] [address] Care Team Providers Care Machine Lacer Name Role Phone Jese (RETIRED) Karan CARTER Primary Care Provide Zafar Thomson [phone] REASON FOR VISIT colon screening/ hx of polyps Encounters Encounter Location Date Provider Diagnosis [facility] [place] [address] [place], [place] [phone] 03/14/2025 Zafar Calderon Plan Of Treatment No Information Progress Notes * SUN HERNANDES JrDOB: (74 yo M)Acc No.[id number]:03/14/2025 COLON WITH MAC Patient: Shereen LANGFORDSUN Jr Provider: Elodia Calderon MD :1950 A ge:74 Y S ex:Male Date:03/14/2025 [facility] [facility] Pcp:Karan Sawant (RETIRED )MD Subjective: * Chief [...] 03/14/2025 Generated for Printi ng/Faxing/eTransmitting on: 0 04/20/2025 10:53 AM EDT
--- NOTE | 2025-04-20 09:24 | A.OFFVIS_ITS ---
Intake Visit Reasons: 3 month MS Accompanied by: Spouse Allergies hay fever Allergy (Severe, Uncoded 04/20/25 09:32) sob Medication List - Last Reconciled 04/20/25 by Genet Wang CNP aspirin 81 mg PO DAILY atorvastatin 80 mg PO DAILY bupropion HCl SR 150 mg PO BID dalfampridine ER (Ampyra) 10 mg PO Q12H 90 days FreeStyle Lancets (lancets) once daily and as needed for hypoglycemia NS FreeStyle Lite Meter (blood-glucose meter) As directed NS FreeStyle Lite Strips (blood sugar diagnostic) once daily NS gabapentin 300 mg PO TID glipizide ER 5 mg PO DAILY interferon beta-1a (Avonex) 30 mcg IM QWEEK metformin ER 1,000 mg PO BID metoprolol succinate ER 25 mg PO DAILY multivitamin 1 tab PO DAILY pioglitazone 30 mg PO DAILY tamsulosin 0.4 mg PO BEDTIME HPI Comments Details: He was here with his . Ongoing difficulty with balance and trouble walking. He got new L AFO brace about 1 week ago, no falls since getting new brace. He does not like to use cane or walker. He was using scooter for longer distances. He was requesting referral to [facility] in [place] as he had good experience with PT there in the past. MS stable on weekly Avonex injections, no medication side effects. He was going to [place] with his from 05/2025-12/2025. He had a PCP in [place] and had appointment scheduled for 06/2025. Fell and fractured R ribs in early 2024 while in [place] when trying to untangle dogs. Has had more few falls since being back in [place] over summer 2024 without significant injury. PT determined he would benefit from custom AFO (which he received in 04/2025). Ongoing LBP, stable with gabapentin. It started after a fall on 02/18/21, MRI shows [address] Aponte who recommended pain meds and PT at the time. Some trouble sleeping and fatigue. He has relapsing remitting MS on the weekly Avonex injection. Decided not to switch to [employer]. [facility], [facility] Medical History CAD (coronary artery disease) Smoker Myocardial infarction (2015) HLD (hyperlipidemia) Diabetes Multiple sclerosis Surgical History Hx of inguinal hernia repair Hx of tonsillectomy Hx of vasectomy H/O heart artery stent Hx of colonoscopy (01/25/19) Family History Mother No problems noted. Father No problems noted. Social History Housing: House Patient Tobacco Use Status: Current everyday Tobacco user Tobacco use type: Cigarette Cigarettes Per Day: 20 e-Cigarette/Vaping Use: Currently Using service: No Current occupational status: retired Cognitive needs: Yes (M.S) Hearing needs: No Vision needs: Yes (Rx glasses) Review of Systems Const Denies chills, Denies daytime sleepiness, Denies difficulty sleeping, Reports fatigue, Denies fever(s), Reports frequent falls, Denies headache(s), Denies increased appetite, Denies poor appetite, Denies snoring, Denies weakness, Denies weight gain and Denies weight loss Eyes Denies loss of vision ENT Denies vertigo, Denies dizziness, Denies headache(s) and Denies neck pain Card Denies chest pain at rest, Denies chest pain with activity, Denies syncope, Denies leg edema, Denies palpitations, Denies dyspnea and Denies dyspnea on exertion Resp Denies cough, Denies dyspnea, Denies dyspnea on exertion and Denies snoring GI Denies abdominal pain, Denies constipation, Denies heartburn, Denies diarrhea and Denies nausea Denies urinary frequency, Denies urinary incontinence and Denies urinary urgency Musc Reports abnormal gait, Reports back pain, Denies myalgias, Denies arthralgias, Denies neck pain, Denies numbness and Denies tingling Neuro Reports abnormal gait, Denies vertigo, Denies dizziness, Denies syncope, Reports frequent falls, Denies headache(s), Denies lack of coordination, Denies loss of vision, Denies memory loss, Denies numbness, Denies Other visual disturbances, Denies restless legs, Denies seizure-like activity, Denies tingling, Denies paresthesias, Denies tremor(s) and Denies weakness Psych Denies anxiety, Denies depression, Denies auditory hallucinations, Denies memory loss and Denies visual hallucinations Endo Reports fatigue and Denies palpitations Physical Exam Const Other: General Appearance:? normal, in no acute distress. Heart:? S1, S2 normal, no murmurs. Lungs:? clear anteriorly and posteriorly. Musculoskeletal:? normal. Extremities:? no edema. Psych:? alert, oriented, cognitive function intact, cooperative with exam. Neuro Other: Abnormal Neurological Findings:?walks with a limp with a slightly spastic and unsteady gait, using scooter. LUE pronation and 5-/5. LLE 5-/5. L AFO. Right dorsiflexor weakness 4-/5. Mental Status: alert and oriented X 3. Normal attention, orientation, memory, and affect. Cranial Nerves: Pupils are equal, round, and reactive to light. External ocular muscles are intact. Visual friedman are full, no ptosis. Face is symmetrical, no facial weakness or droop. Facial sensations are normal. Tongue protrudes in midline. Palate elevates symmetrically. Shoulder shrugging is normal Motor Examination: As above. Sensory Exam: Normal light touch, temperature, pinprick, vibration, and joint- position sensations. Rhomberg sign is absent. Coordination: No ataxia. No titubation. Gait Exam: As above. Cerebellar Signs: Dtwnic-zn-wycd is okay. Extrapyramidal System: No tremor, rigidity with normal facial expressions. No bradykinesia. No bradyphrenia. Normal arm swing and posture. No propulsion or retropulsion. Speech: Normal. Results Reviewed Results Reviewed: Laboratory Tests 02/01/25 08:30 Sodium 140 Potassium 4.4 Chloride 107 Carbon Dioxide 24 Anion Gap 13 BUN 19 H Creatinine 0.94 Estimated GFR > 60 Random Glucose 234 H Hemoglobin A1c % 7.5 H Calcium 9.1 Total Bilirubin 0.5 AST 22 ALT 32 Alkaline Phosphatase 81 Total Protein 6.5 Albumin 4.4 Triglycerides 87 Cholesterol 83 LDL Cholesterol, Calc 36 HDL Cholesterol 30 L MRI brain W&WO at [facility] 02/03/2025: No acute intracranial process seen. Extensive white matter changes involving the peripheral white white matter suggestive of chronic demyelination/or mass. No acute enhancement seen to suspect any acute plaques. 03/2022 LS spine XR: Bilateral L5 spondylolysis without spondylolisthesis. There is somerelatively mild degenerative change with disc narrowing greatest atL4/L5. Assessment & Plan Assessment & Plan (1) Multiple sclerosis: Comment: since age 25 Code(s): G35 - Multiple sclerosis Category: Medical Plan: Lab results reviewed, liver and kidney functions are okay. Start dalfampridine ER 10mg 1 tablet twice a day, use/side effects reviewed. Continue Avonex Prefilled Syringe Kit 30mcg/0.5mL 0.5mL IM weekly. Referral for PT ([facility] in [place]) placed for gait and balance training, core strengthening. He was leaving next month for [place] with his and was planning to return in December. Follow up upon return (December) or sooner as needed. He was advised to contact the office for any new/worsening symptoms, questions, or concerns. (2) Lumbar radiculopathy: Code(s): M54.16 - Radiculopathy, lumbar region Category: Medical Plan: . Orders: Orders PT Evaluation and Treatment Today G35 - Multiple sclerosis Medications: New dalfampridine ER (Ampyra) 10 mg PO Q12H 180 tabs 1RF 90 days Coding Level of Care Code Est Pt Level 4 (64623) Diagnoses Multiple sclerosis G35 Lumbar radiculopathy M54.16
--- OUTSIDE RECORDS SUMMARY | 2025-04-20 10:52 | XMS_ITS | Patient Health Record ---
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 Role Phone Jese (RETIRED) Karan CARTER Primary Care Provide r Unavailable CalderonZafar Unavailable [phone] Allergies No Known Allergies Results Component Value Reference Range Notes Glucose, Whole Blood Reviewed date:03/15/2025 06:36:11 PM Interpretation: Performing Lab:[facility], [address] [place] [id number] Notes/Report: Glucose, Whole Blood 225 60-115 mg/dL METER # : [id number] Pathology (Not yet reviewed by provider) Interpretation: Performing Lab:[address] [address] Notes/Report: Reason For Referral No Information Medications [...] Problem Status W/U Status Risk Notes Problem 311810303 Encounter for screening for malignant neoplasm of colon (Z12.11) Active confirmed Problem 860766910 Hx of adenomatous colonic polyps (Z86.010) Active confirmed Problem 136548565804669 Encounter for long-term (current) aspirin use (Z79.82) Active confirmed Problem Personal history of adenomatous and serrated colon polyps (Z86.0101) Active confirmed Vital Signs Temperature 97.1 degrees Fahrenheit 08/11/2024 Blood pressure diastolic 00 mm Hg 08/11/2024 Height 69 in 08/11/2024 Blood pressure systolic 000 mm Hg 08/11/2024 Weight 165 lbs 08/11/2024 BMI 24.36 kg/m2 08/11/2024 Encounters Encounter Location Date Provider Diagnosis [facility] [address] [place], [place] [id number] 03/14/2025 Zafar Calderon [facility] [address] [facility] [address] [place] [phone] 08/11/2024 Zafar Calderon Hx of adenomatous colonic polyps Z86.010 ; Encounter for long-term (current) aspirin use Z79.82 and Encounter for screening for malignant neoplasm of colon Z12.11 [facility] [address] [place] [phone] 12/01/2024 Zafar Calderon Assessments Encounter Date Diagnosis [...] Start Date Coverage End Date MEDICARE OF [facility] [address] [place] [address] [id number] SUN HERNANDES Self - patient is the insured [id number] [address] [place] [id number] SUN HERNANDES Self - patient is the insured Medical (General) History Medical History History ICD Code Colonoscopy 08-31-2001-tubular adenoma re moved Neg. colonoscopy in 05/2007 except for h yperplastic poyps Multiple sclerosis since age 25 NIDDM Denies CVA,Lung disease,renal disease Hyperlipidemia [place] 2016-1 stent placed Colonoscopy 01/2013--- 2 small tubular ad enomas removed Colonoscopy 01/2019 1 tubular adenoma rem anila Surgical History Surgery Date(Month/Year) Vasetomy Tonsillectomy Hernia repair-inguinal
== END 2025-04-20 10:06 | disposition home or self-care (01) ==
LOC: HO.HSM 09:15
PROVIDERS: Visit Provider Registered Nurse
DX: G35 Multiple sclerosis (principal); M54.16 Radiculopathy, lumbar region
CPT/HCPCS: 99214

== ENCOUNTER 2025-04-20 09:14 | Outpatient (REF) | payer MEDICARE, OTHER, SELFPAY | END 2025-04-20 09:15 | disposition home or self-care (01) | LOC: HO.LNP 09:14 | PROVIDERS: Urology; Visit Provider Registered Nurse | DX: G35 Multiple sclerosis (principal); M54.16 Radiculopathy, lumbar region; N39.0 Urinary tract infection, site not specified; Z79.899 Other long term (current) drug therapy | CPT/HCPCS: 88112; 99212 ==

== ENCOUNTER 2025-05-18 09:00 | Outpatient (RCR) | payer MEDICARE, OTHER, SELFPAY ==
[2024-12-23 12:34] VITALS: BP 119/58; PULSE 67
--- NOTE | 2024-12-24 11:04 | MHC.PT.EP ---
[facility] [place] Office [place] Office [place] Office [address] Rozina Azar [address] [phone] F: [phone] F: [phone] F: [phone] F: [phone] Physical Therapy Plan of Care Date of Evaluation: 12/23/24 Date of Surgery: Diagnosis: MULTIPLE SCLEROSIS, BALANCE PROBLEMS, LEs WEAKNESS Assessment: 74 YO MALE REF TO PT FOR MS/ BALANCE DEFCITS/ LEs WEAKNESS- HE ALSO HAS A SEPARATE REF FOR BPPV. THE Pt WAS DX W MS IN 1975- HE HAS HASD HIS MOST RECENT FALL IN OCTOBER 2024-> THE Pt DEFERS USE OF ANY ASST DEVICES. HE RESIDES W HIS AND STATED HE HAS HAD PREVIOUS PT, HE NOTED HE DOES NOT PERFORM ANY OF THE HEP. OBJECTIVELY, THE Pt HAS ALTERED GAIT MECH, (+) BALANCE DEFICITS, DECR LEs STRENGTH, DECR Lt > Rt ANKLE ROM, DECR KINESTHETIC AWARENESS, AND HE HAS DIZZINESS W MD REF FOR BPPV. HE ENJOYS PLAYING POOL, HE GOES TO [employer]FF[employer] DAILY, PUZZLE BOOKS, AND WATCHING SPORTS. WE DISCUSSED THE PT POC ,AND, ENCOURAGED THE Pt THAT FOR OPTIMAL RESULTS/ GOAL ACHIEVEMENT, ACTIVE Pt PARTICIPATION AND HEP COMPLIANCY WILL BE NECESSARY. Frequency and Duration: The patient will be seen 2 x WK x 5 WKS Short Term Goals: INITIATE HEP-> ANKLE / HIP FLEXIB; LEs STRENGTHENING IMPROVE STATIC-> DYNAMIC BALANCE W FUNCTIONAL TASKS-> CORE STABILIZATION Fci Goals: IMPROVE LEFI, 39/80 AT EVAL Pt IMPROVE GAIT MECH ON LEVEL GROUND AND STAIRS W ASST DEVICE IMPROVED FLEXIB / STRENGTH IN LEs GULSHAN-> STATIC STAND FOR ADLs -SHAVING, BRUSHING TEETH Treatment Plan: Modalities to reduce pain, spasms and effusion. Manual therapy to restore motion and function. Therapeutic exercise to improve strength and flexibility. Neuromuscular re-education for posture and balance. Therapeutic activities to return to functional activities of daily living. Electronically signed by: BRIAN HAYDEN,PT Please sign and return to therapist. Thank you for your referral.
--- NOTE | 2025-06-01 15:13 | MHC.PT.DC ---
[facility] [place] [facility] [place] [facility] [place] Office [address] Rozina Azar [address] [phone] F: [phone] F: [phone] F: [phone] F: [phone] Physical Therapy Discharge Report Diagnosis: MULTIPLE SCLEROSIS, BALANCE PROBLEMS, LEs WEAKNESS-> NEW Lt AFO Date of Surgery: Date of Evaluation: 12/23/24 Date of Discharge: 06/01/25 Treatments to Date: 16 Cancellations to Date: 2 No Shows to Date: Discharge Status: Improved Function Patient Elected to Stop Discharge Summary: [place] IS LEAVING FOR [place] x 6 MONTHS- AT LAST APPT, WE REINFORCED COMPLIANCY W HEP AND RE-EDUC [place] RE IMPROVED AND SAFER GAIT MECH W USE OF NEW Lt AFO AND CANE- THE Pt REQ VC RE DECRTEASING THE SPEED, MORE APPROP PACE W FUNCTIONAL TASKS- THE Pt REPORTED HE IS NOT INTERESTED IN USING A CANE DESPITE EDUCATION AND APPLICATION IN PT. AT D/C HE SCORED 31/80 on LEFI, AT EVAL, 39/80. Electronically signed by: BRIAN HAYDEN, PT Please sign and return to therapist. Thank you for your referral.
== END 2025-06-01 15:14 | disposition home or self-care (01) ==
LOC: HO.PT 09:00
PROVIDERS: Absent Provider Registered Nurse; PCP Internal Medicine; Visit Provider Internal Medicine
DX: R26.89 Other abnormalities of gait and mobility (principal); R29.898 Other symptoms and signs involving the musculoskeletal system; G35.D Multiple sclerosis, unspecified
CPT/HCPCS: 97110; 97112; 97116; 97163; 97164; 97530